=== PATIENT | female | born 1950 | race Hispanic/Latino ===

== ENCOUNTER 2017-11-14 13:46 | Inpatient (IN) | payer MEDICARE ==
[~2017-11-14] VITALS: Ht 160 cm; Wt 91.4 kg
[~2017-11-14 13:46] MED LIST: ASPIRIN81 MG PO; ATORVASTATIN CA20 MG PO; GLIMEPIRIDE4 MG PO; INVOKANA PO; JANUVIA100 MG PO; LANTUS100 UNITS/ SQ; LINZESS PO; LISINOPRIL-HCT1 EACH PO; MULTI-VITAMIN1 EACH PO; STOOL SOFTENER100 M1 PO; SULFAMETHOXAZO1 EAC1 PO
[2017-11-14] MEDS ORDERED: VANCOMYCIN 1GM/NS 250 ML 250 ML IV STA (14:27)
[2017-11-14] MEDS ORDERED: PIPER-TAZ 3.375 GM 50 ML IV STA (14:27)
--- NOTE | 2017-11-14 14:57 | Diagnostic Imaging Report ---
EXAMINATION: CHEST SINGLE (PORTABLE) INDICATION: \S\OSTEOMYELITIS RIGHT 3RD TOE \S\[id number] \S\1430 \S.br\ COMPARISON: Chest radiograph 03/30/2015 FINDINGS: AP view TUBES and LINES: None. LUNGS: Lungs are well inflated. Lungs are clear. There is no evidence of pneumonia or pulmonary edema. PLEURA: No pleural effusion or pneumothorax. HEART AND MEDIASTINUM: The cardiomediastinal silhouette is unremarkable. BONES AND SOFT TISSUES: No acute osseous lesion. Soft tissues are unremarkable. UPPER ABDOMEN: No free air under the diaphragm. IMPRESSION: No acute thoracic abnormality. Signed by: DR. Giovanny Evangelista MD on 11/14/2017 2:53 PM
--- NOTE | 2017-11-14 15:05 | Diagnostic Imaging Report ---
FOOT RIGHT COMPLETE HISTORY: Right third digit abscess, wound. COMPARISON: None available. FINDINGS: Bones: No acute displaced fracture. Chronic appearing fracture deformity of the third proximal phalanx. Calcaneal enthesopathic changes. Osseous alignment is within normal limits. Joints: Scattered mild degenerative changes. Soft tissues: Vascular calcifications. Soft tissue swelling/defect of the third digit. IMPRESSION: Soft tissue swelling of the third toe without radiographic evidence of osteomyelitis. Recommend follow up radiograph in the setting of continued poor wound healing. Signed by: DR. Giovanny Evangelista MD on 11/14/2017 3:01 PM
[2017-11-14 15:22] LABS: BASOPHILS # (AUTO) 0.1 (0.0-0.1); BASOPHILS % 0.3 % (0.0-1.0); EOSINOPHILS # (AUTO) 0.2 (0.0-0.4); EOSINOPHILS % 1.1 % (0.0-6.0); HEMATOCRIT 38.3 % (34.2-44.1); HEMOGLOBIN 12.4 g/dL (12.0-16.0); LYMPHOCYTES % 11.1 % (18.0-39.1); MEAN CORPUSCULAR HEMOGLOBIN 29.1 pg (28-32); MEAN CORPUSCULAR HGB CONC 32.4 g/dL (31-35); MEAN CORPUSCULAR VOLUME 89.9 fL (81-99); MONOCYTES # (AUTO) 0.8 (0.2-0.8); MONOCYTES % 4.7 % (4.4-11.3); NEUTROPHILS # (AUTO) 14.7 (2.1-6.9); NEUTROPHILS % 81.9 % (38.7-80.0); PLATELET COUNT 286 x10e3/uL (140-360); RED BLOOD COUNT 4.26 x10e6/uL (3.6-5.1); RED CELL DISTRIBUTION WIDTH 15.5 % (11.7-14.4)
[2017-11-14 15:30] LABS: INR 0.92; PROTHROMBIN TIME 12.8 seconds (11.9-14.5)
[2017-11-14 15:31] LABS: PARTIAL THROMBOPLASTIN TIME 29.9 seconds (23.8-35.5)
[2017-11-14 15:37] LABS: ALANINE AMINOTRANSFERASE 14 IU/L (0-55); ALBUMIN 3.7 g/dL (3.5-5.0); ALBUMIN/GLOBULIN RATIO 0.8 (0.8-2.0); ALKALINE PHOSPHATASE 143 IU/L (40-150); ANION GAP 16.4 mmol/L (8-16); BLOOD UREA NITROGEN 80 mg/dL (7-26); BUN/CREATININE RATIO 23 (6-25); CALCIUM 9.4 mg/dL (8.4-10.2); CARBON DIOXIDE 17 mmol/L (22-29); CHLORIDE 100 mmol/L (98-107); CREATININE, SERUM 3.42 mg/dL (0.57-1.11); EST GLOMERULAR FILTRATION RATE 13 ML/MIN (60-); GLUCOSE 216 mg/dL (74-118); SODIUM 128 mmol/L (136-145)
[2017-11-14 15:39] LABS: POTASSIUM 5.4 mmol/L (3.5-5.1)
[2017-11-14] MEDS ORDERED: ONDANSETRON HCL INJ 2 MG/ML VIAL IV PRN (17:00)
[2017-11-14] MEDS: SODIUM CHLORIDE 0.9% 1000ML 1,000 ML IV SCH (17:12)
[2017-11-14 20:45] VITALS: BP 156/88
[2017-11-14] MEDS: INSULIN REGULAR, HUMAN 100 UNIT/1 ML 3ML VIAL SQ SCH (21:00)
[2017-11-14 21:06] VITALS: BP 156/88
[2017-11-14 21:18] VITALS: BP 156/82
[2017-11-14] MEDS ORDERED: MELOXICAM7.5 MG PO (21:27)
[2017-11-14] MEDS: PIPERACILLIN/TAZO 2.25 GM 50 ML IV SCH (22:54)
[2017-11-15] VITALS (7 sets, daily range): BP systolic 107–154; BP diastolic 55–81
[2017-11-15] MEDS: PIPERACILLIN/TAZO 2.25 GM 50 ML IV SCH ×3 (05:27→21:53)
[2017-11-15] MEDS: SODIUM CHLORIDE 0.9% 1000ML 1,000 ML IV SCH ×3 (05:27→21:51)
[2017-11-15 06:29] LABS: BASOPHILS # (AUTO) 0.1 (0.0-0.1); BASOPHILS % 0.3 % (0.0-1.0); EOSINOPHILS # (AUTO) 0.3 (0.0-0.4); HEMATOCRIT 36.7 % (34.2-44.1); HEMOGLOBIN 11.5 g/dL (12.0-16.0); LYMPHOCYTES # (AUTO) 2.6 (1.0-3.2); LYMPHOCYTES % 16.9 % (18.0-39.1); MEAN CORPUSCULAR HEMOGLOBIN 28.9 pg (28-32); MEAN CORPUSCULAR HGB CONC 31.3 g/dL (31-35); MEAN CORPUSCULAR VOLUME 92.2 fL (81-99); MONOCYTES # (AUTO) 1.1 (0.2-0.8); MONOCYTES % 7.2 % (4.4-11.3); NEUTROPHILS # (AUTO) 11.3 (2.1-6.9); NEUTROPHILS % 72.8 % (38.7-80.0); PLATELET COUNT 251 x10e3/uL (140-360); RED BLOOD COUNT 3.98 x10e6/uL (3.6-5.1); RED CELL DISTRIBUTION WIDTH 15.4 % (11.7-14.4)
[2017-11-15 06:47] LABS: CALCIUM 8.6 mg/dL (8.4-10.2); CREATININE, SERUM 2.87 mg/dL (0.57-1.11)
[2017-11-15 07:15] LABS: ANION GAP 13.8 mmol/L (8-16); POTASSIUM 5.8 mmol/L (3.5-5.1)
[2017-11-15] MEDS ORDERED: CANAGLIFLOZIN 100 MG TABLET PO SCH (07:30)
[2017-11-15] MEDS: INSULIN REGULAR, HUMAN 100 UNIT/1 ML 3ML VIAL SQ SCH ×4 (07:30→21:00)
[2017-11-15] MEDS ORDERED: GLIMEPIRIDE 2 MG TAB PO SCH (08:00)
[2017-11-15] MEDS: MULTIVITAMINS/MINERALS TAB PO SCH (08:45)
[2017-11-15] MEDS: HYDROCHLOROTHIAZIDE 25 MG TAB PO SCH ×3 (08:45→21:36)
[2017-11-15] MEDS: LISINOPRIL 20 MG TAB PO SCH ×3 (08:45→21:36)
[2017-11-15] MEDS: MELOXICAM 7.5 MG TAB PO SCH (08:45)
[2017-11-15] MEDS ORDERED: NON-FORMULARY MEDICATION (Glimepiride 1 TAB) PO SCH (09:00)
[2017-11-15] MEDS ORDERED: VANCOMYCIN HCL IV SCH (09:00)
[2017-11-15] MEDS ORDERED: SODIUM CHLORIDE 0.9% IV SCH (09:00)
[2017-11-15] MEDS ORDERED: ASPIRIN 81 MG CHEW TAB PO SCH (09:00)
[2017-11-15] MEDS ORDERED: SITAGLIPTIN 100 MG TAB PO SCH (09:00)
--- NOTE | 2017-11-15 12:55 | Consultation ---
DATE OF CONSULTATION: PODIATRY CONSULT CHIEF COMPLAINT AND HISTORY OF CHIEF COMPLAINT: Ms. Beavers is a most pleasant female with gangrene of the 3rd digit of the right foot. The patient states that she took her normal bath Sunday of last week and noticed no problems. By Sunday she stated that she noticed a foul odor and black toe, which was the next time that she bathed. The patient reported to the ER last night for admission and is now being treated for gangrene of the right lower extremity with IV antibiotics. PREVIOUS MEDICAL HISTORY: Does indeed include diabetes x20+ years. She states that she has no other significant previous medical history and sees Dr. Teague for her overall healthcare. The patient states she sees Dr. Teague every 3 months. She is also being treated for hypertension. REVIEW OF SYSTEMS: Otherwise negative. She has no other complaints, is breathing normally without significant pain. Previous medical history diabetes and hypertension. MEDICATIONS: Well documented elsewhere within the chart. ALLERGIES: SHOW ALLERGIES TO HYDROMORPHONE AND MORPHINE. SOCIAL HISTORY: The patient is a former smoker. She states that she quit smoking 3 years ago. PHYSICAL EVALUATION LOWER EXTREMITY VASCULAR STATUS: The patient has a warm lower extremity bilaterally. There are, however, nonpalpable pedal pulses in either dorsalis pedis or posterior tibial. Skin temperature is warm. Capillary refill is sluggish. NEUROLOGICALLY: The patient has a loss of protective sensation as evidenced by G[place]-Vishnu monofilament testing. DERMATOLOGICALLY: There is a gangrenous 3rd digit with a foul odor and bullous appearance to the digit. MUSCULOSKELETAL: Radiographs taken on admission show soft-tissue swelling of the 3rd toe without radiographic evidence of osteomyelitis. No obvious abscessing is noted. LABS, X-RAYS AND EKG: The chest x-ray is normal. CBC does show elevated white count at 18 with a shift to the left. DIAGNOSIS: Gangrene 3rd digit right foot with infection. She is currently on Zosyn and vancomycin. Noninvasive arterial vascular evaluations show severe peripheral arterial disease with probable occlusion to the right lower extremity. RECOMMENDATION: Local wound care with Bactroban ointment twice daily. Continue IV antibiotics. MRI of the right lower extremity to evaluate for possible osteomyelitis as well, and vascular consult is made to Dr. Kelley for consideration of revascularization if possible to facilitate healing and determine appropriate level for debridement. Thank you very much for asking me to participate in the care of this most pleasant lady. Job#: [id number] EV
--- NOTE | 2017-11-15 13:52 | Consultation ---
DATE OF CONSULTATION: November 15, 2017 CARDIOLOGY CONSULTATION REQUESTING PHYSICIAN: Dr. Iker Teague. REASON FOR CONSULTATION: Peripheral arterial disease. HISTORY OF PRESENT ILLNESS: This is a 67-year-old woman with history of hypertension, hyperlipidemia, diabetes mellitus and chronic kidney disease, who presents with right toe gangrene. She reports she noted discoloration of her right toe 1 week ago. This was associated with foul odor and drainage. She went to see urgent care, where she was given a topical cream and some oral antibiotics with recommendation to see wound care. She was unable to get in to see wound care; so, she, therefore, presented to the ER for further evaluation. She denies any chest pain, shortness of breath, palpitations, edema, orthopnea or PND. REVIEW OF SYSTEMS: Negative except as per HPI. PAST MEDICAL HISTORY 1. Hypertension. 2. Hyperlipidemia. 3. Diabetes mellitus. 4. Chronic kidney disease stage 3. 5. Reported history of peripheral arterial disease with prior angioplasty. SURGICAL HISTORY 1. I&D. 2. Hemorrhoidectomy. 3. Cholecystectomy. 4. Tonsillectomy. ALLERGIES: PLEASE SEE EMR. MEDICATIONS: Please see medication list. SOCIAL HISTORY: She smoked a pack a day for 30 years, quit in 2014. Occasional alcohol, no illicit drugs. FAMILY HISTORY: Noncontributory. PHYSICAL EXAMINATION VITAL SIGNS: Temperature 97.3 degrees, pulse 78, respiratory rate 19, blood pressure 107/67, oxygen saturation 96% on room air. GENERAL: Obese woman in no acute distress. HEENT: Normocephalic, atraumatic. Pupils equal, no scleral icterus. NECK: Supple. No thyromegaly or cervical lymphadenopathy, no carotid bruits. LUNGS: Clear to auscultation bilaterally. No wheezes or crackles. CARDIOVASCULAR: Normal rate, regular rhythm. No murmur. Normal S1 and S2. ABDOMEN: Soft, nontender. EXTREMITIES: No edema. Right 3rd toe with dry gangrene. LABS: Sodium 136, potassium 5.8, chloride 112, CO2 16, BUN 72, creatinine 2.87. WBC 15.5, hemoglobin 11.5, hematocrit 36.7, platelets 251. Chest x-ray: No acute thoracic abnormality. EKG: Normal sinus rhythm, normal ECG. IMPRESSION 1. Right 3rd toe gangrene. 2. Chronic kidney disease stage 4. 3. Diabetes mellitus. 4. Hypertension. 5. Hyperlipidemia. 6. Reported history of peripheral arterial disease. RECOMMENDATIONS: Will start with bilateral lower extremity arterial Dopplers. If Dopplers are suggestive of hemodynamically significant stenosis, we will need to discuss peripheral angiogram. However, the patient's renal function is quite poor. She may be at high risk for contrast-induced nephropathy if she were to undergo peripheral angiogram. In the meantime, continue current cardiac medications. Thank you for this consult. We will continue to follow. Job#: [id number] EV MTDD
--- NOTE | 2017-11-15 14:08 | Progress Note ---
DATE: NO DICTATION, LENGTH 3 SECONDS. Job#: [id number] MH
--- NOTE | 2017-11-15 14:18 | Consultation ---
DATE OF CONSULTATION: REASON FOR CONSULTATION: Infection of the right middle toe, gangrene. HISTORY OF PRESENT ILLNESS: This patient is a 67-year-old female, very pleasant, with history of hypertension, history of diabetes mellitus, and history of smoking, quit 3 years ago. She has been having a problem with her right foot for a few weeks. The 3rd toe seems to be getting progressively black and discolored, which she had for a while. The patient comes into the hospital finally complaining of some pain in the toe. The patient noted there was some odor, and the toe became black on Sunday. The patient is being admitted. Infectious disease was consulted. The patient is currently lying in bed comfortably. She has no complaints except some pain in the big toe. PAST MEDICAL HISTORY: Diabetes mellitus, hypertension, history of smoking. PAST SURGICAL HISTORY: Denies. ALLERGIES: MORPHINE. MEDICATION: List at home reviewed. Medications here list reviewed. SOCIAL HISTORY: There is currently no smoking, drug abuse or alcohol abuse. FAMILY HISTORY: Hypertension and diabetes. REVIEW OF SYSTEMS HEENT: There is no headache, visual changes, hearing changes. CARDIAC: No arrhythmia. No seizure activity. SKIN: No rash. GI: There is no vomiting, no diarrhea, no diarrhea. LABORATORY DATA: Reviewed. White count is 17.9, hemoglobin 12, hematocrit 38. Her sodium is 136, potassium 5.8, creatinine of 2.87. X-ray of the foot is showing soft-tissue swelling of the 3rd toe without radiographic evidence of osteomyelitis. PHYSICAL EXAMINATION GENERAL: She is currently alert and oriented, does not seem to be in acute distress. VITALS: Stable, currently afebrile. HEENT: She is not icteric. NECK: Supple. CHEST: Clear. COR: No murmur. ABDOMEN: Soft. Bowel sounds are present. No tenderness. EXTREMITIES: No edema. There is erythema of the foot. There are gangrenous changes noted of the 3rd toe. The pulse is weak. IMPRESSION: Gangrene of 3rd toe with soft-tissue infection. Concerned about osteomyelitis. X-ray does not reveal that concern. However, would need to do an MRI. Agree with choice of vancomycin and Zosyn. Agree with vascular workup. Further recommendations to follow. Job#: [id number]
[2017-11-15] MEDS: MUPIROCIN 2% OINT 22 GM TUBE TOP SCH (16:03)
[2017-11-15] MEDS: CANAGLIFLOZIN 100 MG TABLET PO SCH (17:10)
[2017-11-15] MEDS: VANCOMYCIN 1GM/NS 250 ML 250 ML IV SCH (17:10)
[2017-11-15] MEDS: SITAGLIPTIN 100 MG TAB PO SCH (17:11)
--- NOTE | 2017-11-15 17:11 | Diagnostic Imaging Report ---
TECHNIQUE: Magnetic resonance imaging of the RIGHT foot (midfoot/forefoot) was performed WITHOUT injected contrast. HISTORY: wet gangrene, infection, third toe, osteomyelitis COMPARISON: None available. DISCUSSION: Bone: No focal or infiltrative bone marrow replacing abnormality. No acute fracture or osteonecrosis. Healed fracture deformities of the bases of the second, third and fifth proximal phalanges. Diffusely preserved fatty marrow signal. Joints: Hammertoe configuration of the second and third digits. No effusion. Soft Tissues: No drainable fluid collection. Mild diffuse edema. IMPRESSION: 1. No evidence of osteomyelitis. 2. No soft tissue abscess. Signed by: Dr. Aleksandr Watson D.O., M.M.M. on 11/15/2017 5:08 PM
[2017-11-15] MEDS ORDERED: ATORVASTATIN 20 MG TAB PO SCH (21:00)
[2017-11-15] MEDS ORDERED: NON-FORMULARY MEDICATION ([Invokana] 300 MG) PO SCH (21:00)
[2017-11-15] MEDS: INSULIN DETEMIR 100 UNIT/ML PEN SQ SCH (21:36)
[2017-11-15] MEDS: ATORVASTATIN 40 MG TAB PO SCH (21:36)
[2017-11-15] MEDS: ASPIRIN 81 MG CHEW TAB PO SCH (21:36)
[2017-11-15] MEDS: GLIMEPIRIDE 2 MG TAB PO SCH (21:36)
[2017-11-16 00:10] VITALS: BP 96/62
[2017-11-16] MEDS: SODIUM CHLORIDE 0.9% 1000ML 1,000 ML IV SCH ×3 (00:47→16:43)
[2017-11-16 04:40] VITALS: BP 121/71
[2017-11-16] MEDS: PIPERACILLIN/TAZO 2.25 GM 50 ML IV SCH ×3 (05:50→22:00)
[2017-11-16] MEDS: LOPERAMIDE HCL 2 MG CAP PO PRN (05:52)
[2017-11-16 06:25] LABS: BASOPHILS # (AUTO) 0.1 (0.0-0.1); BASOPHILS % 0.4 % (0.0-1.0); EOSINOPHILS # (AUTO) 0.3 (0.0-0.4); HEMATOCRIT 32.4 % (34.2-44.1); HEMOGLOBIN 10.1 g/dL (12.0-16.0); LYMPHOCYTES # (AUTO) 2.1 (1.0-3.2); MEAN CORPUSCULAR HEMOGLOBIN 28.7 pg (28-32); MEAN CORPUSCULAR HGB CONC 31.2 g/dL (31-35); MONOCYTES % 7.2 % (4.4-11.3); NEUTROPHILS # (AUTO) 10.3 (2.1-6.9); NEUTROPHILS % 74.6 % (38.7-80.0); PLATELET COUNT 235 x10e3/uL (140-360); RED BLOOD COUNT 3.52 x10e6/uL (3.6-5.1); RED CELL DISTRIBUTION WIDTH 15.3 % (11.7-14.4)
[2017-11-16 06:51] LABS: ANION GAP 12.8 mmol/L (8-16); CALCIUM 8.4 mg/dL (8.4-10.2); CREATININE, SERUM 2.27 mg/dL (0.57-1.11); POTASSIUM 5.8 mmol/L (3.5-5.1)
[2017-11-16] MEDS: INSULIN REGULAR, HUMAN 100 UNIT/1 ML 3ML VIAL SQ SCH ×4 (07:30→21:00)
[2017-11-16 08:00] VITALS: BP 111/56
[2017-11-16] MEDS: CANAGLIFLOZIN 100 MG TABLET PO SCH (08:40)
[2017-11-16] MEDS: GLIMEPIRIDE 2 MG TAB PO SCH ×2 (08:54→20:00)
[2017-11-16] MEDS: HYDROCHLOROTHIAZIDE 25 MG TAB PO SCH (09:36)
[2017-11-16] MEDS: ASPIRIN 81 MG CHEW TAB PO SCH (09:36)
[2017-11-16] MEDS: MELOXICAM 7.5 MG TAB PO SCH (09:36)
[2017-11-16] MEDS: SITAGLIPTIN 100 MG TAB PO SCH (09:36)
[2017-11-16] MEDS: MULTIVITAMINS/MINERALS TAB PO SCH (09:36)
[2017-11-16] MEDS: LISINOPRIL 20 MG TAB PO SCH (09:37)
[2017-11-16] MEDS: MUPIROCIN 2% OINT 22 GM TUBE TOP SCH (09:37)
[2017-11-16] MEDS ORDERED: SOD POLYSTYRENE SULFONATE SUSP 15 GM/60 ML BTL PO NR (11:30)
[2017-11-16 12:00] VITALS: BP 180/77
--- NOTE | 2017-11-16 13:21 | Consultation ---
DATE OF CONSULTATION: November 16, 2017 NEPHROLOGY CONSULTATION REQUESTING PHYSICIAN: Dr. Teague. Thank you for allowing us to participate in Ms. Beavers's care. HISTORY OF PRESENT ILLNESS: This is a 67-year-old female with known CKD, admitted with right foot 3rd digit gangrene. Doppler is suggestive of peripheral vascular disease. She needs an angiogram. She has known CKD. Two years ago creatinine was about 1.5. I do not have more recent labs available. However, while here it was noted that creatinine has been 3.4 originally, down to 2.27. She has been on IV fluids. Serum CO2 was depressed at 16. Potassium was persistently high around 5.8. She had been on lisinopril. Dose was somewhat cut down. She has had trouble with hyperkalemia as an outpatient before. No urine is available at this time. White count is elevated, down to 13,000 from 17,000. Hemoglobin is stable at 10.1. She had been on Mobic. Serum CO2 is depressed. PAST HISTORY: Significant for 1. CKD probably stage 3, maybe stage 4. I need to confirm that. 2. Hypertension. 3. Diabetes. 4. History of peripheral vascular disease, presumed. 5. Nicotine use. HOME MEDICATIONS 1. Had been on Mobic. I have requested that to be stopped. 2. Lisinopril 20 b.i.d., which has been cut down and now stopped. 3. Hydrochlorothiazide 12.5 twice daily. 4. Sitagliptin 100 once a day. 5. Glimepiride 4 mg a day. 6. Loperamide p.r.n. 7. Lipitor 80 mg a day. 8. Levemir 60 daily. 9. Vancomycin I think 1 g, vancomycin q.24 h. 10. Sodium bicarbonate 300 b.i.d. SOCIAL HISTORY: History of smoking. FAMILY HISTORY: Diabetes. REVIEW OF SYSTEMS CONSTITUTIONAL: No fever or chills. SKIN: Discoloration of the right foot. CARDIAC: No angina or syncope. RESPIRATORY: Denying cough, hemoptysis. NEURO: Denies headaches, seizures. REST OF REVIEW: Negative. PHYSICAL EXAMINATION GENERAL: Lying in bed. No distress. VITAL SIGNS: Blood pressure is 111/56, temperature is 98.5, pulse 90. HEENT: Atraumatic. NECK: No JVD. CHEST: Clear. Bilateral breath sounds are equal. CARDIAC: Question S4. Normal heart tones. ABDOMEN: Benign. EXTREMITIES: No edema. Erythema of the foot is noted as well as discoloration of the right foot 3rd toe. LABS: White count 13,000, hemoglobin 10.1, platelets 235. Potassium is 5.8, serum CO2 is 16, sodium 136, creatinine 2.27, BUN 58. As noted, admission creatinine was 3.4. ASSESSMENT 1. Mild acute kidney injury, probable chronic kidney disease stage 3 to 4 from diabetic hypertensive end-organ damage. Acute kidney injury from potentially (1) acute tubular necrosis, (2) combination of nonsteroidal anti-inflammatory drugs and lisinopril, (3) volume depletion. 2. The volume status appears to be improving. 3. Hyperkalemia, partly from decreased glomerular filtration rate, partly from angiotensin-converting enzyme inhibitors and nonsteroidal anti-inflammatory drugs. 4. Metabolic acidosis, also from the above. Noted that anion gap is 13, which is within the normal range. PLAN 1. Hold the lisinopril. Stop the hydrochlorothiazide. Leave on IV fluids. Add 1 dose of Kayexalate. 2. Recheck chemistries in the morning. 3. Get renal ultrasound. 4. Check urinalysis. 5. Avoid NSAIDs and other nephrotoxins. 6. Additionally counseled her on low-potassium diet, avoidance of NSAIDs, importance of blood pressure and diabetes control as well as weight loss. Thank you for allowing us to participate in Ms. Beavers's care. We will follow along with you. Sincerely, Job#: [id number] EV
--- NOTE | 2017-11-16 15:30 | Progress Note ---
DATE: November 16, 2017 CARDIOLOGY PROGRESS NOTE SUBJECTIVE: Patient denies chest pain. She is reporting dyspnea on exertion. Bilateral lower extremity arterial Doppler was suggestive of hemodynamically significant stenosis in the right lower extremity as well as infrapopliteal peripheral arterial disease on the left. However, her renal function is currently limiting our ability to perform peripheral angiogram. We discussed with the patient that we are awaiting nephrology evaluation to reduce the risk of contrast-induced nephropathy. She expressed an understanding. OBJECTIVE VITAL SIGNS: Temperature 98.5 degrees, pulse 90, respiratory rate 19, blood pressure 111/56. Oxygen saturation is 96% on room air. GENERAL: Awake, alert, obese, in no acute distress. LUNGS: Clear to auscultation bilaterally. No wheezes or crackles. CARDIOVASCULAR: Normal rate, regular rhythm. No murmur. Normal S1 and S2. ABDOMEN: Soft, nontender. EXTREMITIES: No edema. Right 3rd toe with dry gangrene. CARDIAC MEDICATIONS 1. Aspirin 81 mg p.o. daily. 2. Atorvastatin 80 mg p.o. nightly. LABS: WBC 13.8, hemoglobin 10.1, hematocrit 32.4, platelets 235. Sodium 136, potassium 5.8, chloride 113, CO2 16, BUN 58, creatinine 2.27. IMPRESSION 1. Right 3rd toe gangrene. 2. Peripheral arterial disease suggested by noninvasive Doppler evaluation. 3. Muvqs-cg-glmsptd kidney disease. 4. Diabetes mellitus. 5. Hypertension. 6. Hyperlipidemia. RECOMMENDATIONS: Discussed need for peripheral angiogram. However, we are pending nephrology evaluation. Patient was discussed with nephrology. They would like a few more days to optimize the patient's renal function prior to us proceeding. We will hold off. Continue current cardiac medications otherwise. Wound care per podiatry. Thank you for this consult. We will continue to follow. Job#: [id number]
[2017-11-16 16:00] VITALS: BP 131/79
[2017-11-16] MEDS: VANCOMYCIN 1GM/NS 250 ML 250 ML IV SCH (16:43)
[2017-11-16] MEDS: SODIUM BICARBONATE 650 MG TAB PO SCH (16:43)
--- NOTE | 2017-11-16 18:07 | Diagnostic Imaging Report ---
PROCEDURE:US RETROPERITONEAL ( KIDNEY ). COMPARISON:None. INDICATIONS:ARF TECHNIQUE: Parra-scale and color sonographic images of the bilateral kidneys and bladder where obtained in transverse and longitudinal planes. FINDINGS: RIGHT KIDNEY: 9.0 cm, cortex 1.3 cm Cysts: 2.2 x 1.9 x 2.2 cm cystic, anechoic lesion in the inferolateral aspect Solid masses: 0.9 x 1.0 x 1.1 cm relatively well circumscribed, hyperechoic non-shadowing cortical solid lesion in the mid aspect Stones: None Hydronephrosis: None Echogenicity: Normal LEFT KIDNEY: 9.1 cm, cortex 0.9 cm Cysts: None Solid masses: None Stones: None Hydronephrosis: None Echogenicity: Normal Bladder: No focal lesions. No wall thickening. CONCLUSION: 1. Both kidneys are in the lower limit of normal in size. Normal echogenicity. No stones or hydronephrosis. 2. 2.2 cm simple right renal cyst. 3. 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 Chris Natarajan M.D. Dictated by: Chris Natarajan M.D. on 11/16/2017 at 18:16 Electronically approved by: Chris Natarajan M.D. on 11/16/2017 at 18:16
[2017-11-16] MEDS: ATORVASTATIN 40 MG TAB PO SCH (21:00)
[2017-11-16] MEDS: INSULIN DETEMIR 100 UNIT/ML PEN SQ SCH (21:00)
[2017-11-17] VITALS (7 sets, daily range): BP systolic 126–162; BP diastolic 58–81
[2017-11-17] MEDS: SODIUM CHLORIDE 0.9% 1000ML 1,000 ML IV SCH ×2 (02:20→17:42)
[2017-11-17] MEDS: PIPERACILLIN/TAZO 2.25 GM 50 ML IV SCH ×3 (06:02→22:00)
[2017-11-17 06:16] LABS: ANION GAP 13.7 mmol/L (8-16); CALCIUM 8.8 mg/dL (8.4-10.2); CREATININE, SERUM 1.96 mg/dL (0.57-1.11); PHOSPHORUS 3.9 MG/DL (2.3-4.7); POTASSIUM 5.7 mmol/L (3.5-5.1)
[2017-11-17] MEDS: INSULIN REGULAR, HUMAN 100 UNIT/1 ML 3ML VIAL SQ SCH ×4 (07:30→20:55)
[2017-11-17] MEDS: CANAGLIFLOZIN 100 MG TABLET PO SCH (07:30)
[2017-11-17] MEDS: GLIMEPIRIDE 2 MG TAB PO SCH ×2 (08:00→20:54)
[2017-11-17] MEDS: ASPIRIN 81 MG CHEW TAB PO SCH (09:14)
[2017-11-17] MEDS: MULTIVITAMINS/MINERALS TAB PO SCH (09:14)
[2017-11-17] MEDS: SITAGLIPTIN 100 MG TAB PO SCH (09:14)
[2017-11-17] MEDS: MUPIROCIN 2% OINT 22 GM TUBE TOP SCH (09:14)
[2017-11-17] MEDS: SODIUM BICARBONATE 650 MG TAB PO SCH ×2 (09:14→16:30)
--- NOTE | 2017-11-17 12:48 | Progress Note ---
DATE: November 17, 2017 CARDIOLOGY PROGRESS NOTE: SUBJECTIVE: Ms. Beavers has some foot pain. OBJECTIVE VITAL SIGNS: Afebrile. Heart rate 88. Blood pressure 135/64. O2 sat is 97%. CARDIOVASCULAR: Regular rhythm. S4 gallop. No murmurs. LUNGS: Clear to auscultation bilaterally. ABDOMEN: Soft. Hemoglobin is 10.1. Serum creatinine is improved to 1.96 with GFR of 26. Foot MRI does not show any evidence of osteomyelitis. ASSESSMENT: 1. Severe peripheral arterial disease with gangrene of the right lower extremity. 2. Acute on chronic renal failure. PLAN: Continue the intravenous hydration. Withhold any nephrotoxic agents. Planned for angiography on Sunday. This was discussed with the patient. She understands the risks, benefits and alternatives including the risk of worsening renal failure. However, she remains at high risk for limb loss due to her ongoing gangrene and occluded right femoral artery. I thank Dr. Teague for this consultation. Job#: [id number] NICOLE
[2017-11-17] MEDS: VANCOMYCIN 1GM/NS 250 ML 250 ML IV SCH (16:30)
[2017-11-17] MEDS ORDERED: SOD POLYSTYRENE SULFONATE SUSP 15 GM/60 ML BTL PO ONE (19:00)
[2017-11-17] MEDS: ATORVASTATIN 40 MG TAB PO SCH (20:54)
[2017-11-17] MEDS: INSULIN DETEMIR 100 UNIT/ML PEN SQ SCH (20:55)
[2017-11-18] VITALS (7 sets, daily range): BP systolic 117–159; BP diastolic 57–73
[2017-11-18] MEDS: SODIUM CHLORIDE 0.9% 1000ML 1,000 ML IV SCH ×3 (00:47→20:56)
[2017-11-18] MEDS: PIPERACILLIN/TAZO 2.25 GM 50 ML IV SCH ×3 (06:00→22:00)
[2017-11-18 06:26] LABS: ANION GAP 10.7 mmol/L (8-16); CALCIUM 8.5 mg/dL (8.4-10.2); CREATININE, SERUM 1.6 mg/dL (0.57-1.11); POTASSIUM 4.7 mmol/L (3.5-5.1)
[2017-11-18] MEDS: INSULIN REGULAR, HUMAN 100 UNIT/1 ML 3ML VIAL SQ SCH ×4 (07:30→21:00)
[2017-11-18] MEDS: CANAGLIFLOZIN 100 MG TABLET PO SCH (07:30)
[2017-11-18] MEDS: MUPIROCIN 2% OINT 22 GM TUBE TOP SCH (08:26)
[2017-11-18] MEDS: SITAGLIPTIN 100 MG TAB PO SCH (08:26)
[2017-11-18] MEDS: MULTIVITAMINS/MINERALS TAB PO SCH (08:26)
[2017-11-18] MEDS: GLIMEPIRIDE 2 MG TAB PO SCH ×2 (08:26→20:56)
[2017-11-18] MEDS: SODIUM BICARBONATE 650 MG TAB PO SCH ×2 (08:26→17:32)
[2017-11-18] MEDS: ASPIRIN 81 MG CHEW TAB PO SCH (08:26)
[2017-11-18 11:18] LABS: BILIRUBIN,URINE NEGATIVE (NEGATIVE); CLARITY,URINE CLEAR (CLEAR); COLOR,URINE YELLOW (YELLOW); KETONES,URINE NEGATIVE (NEGATIVE); LEUKOCYTE ESTERASE ,URINE NEGATIVE (NEGATIVE); NITRITE,URINE NEGATIVE (NEGATIVE); URINE UROBILINOGEN 0.2 mg/dL (0.2 - 1)
[2017-11-18 11:20] LABS: PROTEIN,URINE DIPSTICK TRACE (NEGATIVE)
[2017-11-18 11:32] LABS: EPITHELIAL CELLS,URINE FEW /LPF; WBC,URINE (MAN) 0-5 /HPF (0-5)
[2017-11-18] MEDS ORDERED: CLOPIDOGREL BISULFATE 75 MG TAB PO ONE (12:30)
[2017-11-18] MEDS: VANCOMYCIN 1GM/NS 250 ML 250 ML IV SCH (17:32)
[2017-11-18] MEDS: ATORVASTATIN 40 MG TAB PO SCH (20:56)
[2017-11-18] MEDS: INSULIN DETEMIR 100 UNIT/ML PEN SQ SCH (21:00)
[2017-11-19] VITALS (8 sets, daily range): BP systolic 126–178; BP diastolic 63–81
[2017-11-19] MEDS: PIPERACILLIN/TAZO 2.25 GM 50 ML IV SCH ×2 (06:00→14:39)
[2017-11-19] MEDS: SODIUM CHLORIDE 0.9% 1000ML 1,000 ML IV SCH ×2 (06:07→08:32)
[2017-11-19 06:22] LABS: BASOPHILS % 0.2 % (0.0-1.0); EOSINOPHILS # (AUTO) 0.3 (0.0-0.4); EOSINOPHILS % 2.1 % (0.0-6.0); HEMATOCRIT 32.3 % (34.2-44.1); HEMOGLOBIN 10.4 g/dL (12.0-16.0); LYMPHOCYTES # (AUTO) 2.1 (1.0-3.2); LYMPHOCYTES % 15.1 % (18.0-39.1); MEAN CORPUSCULAR HEMOGLOBIN 28.9 pg (28-32); MEAN CORPUSCULAR HGB CONC 32.2 g/dL (31-35); MEAN CORPUSCULAR VOLUME 89.7 fL (81-99); MONOCYTES # (AUTO) 0.9 (0.2-0.8); MONOCYTES % 6.4 % (4.4-11.3); NEUTROPHILS # (AUTO) 10.5 (2.1-6.9); NEUTROPHILS % 74.9 % (38.7-80.0); PLATELET COUNT 249 x10e3/uL (140-360); RED CELL DISTRIBUTION WIDTH 15.4 % (11.7-14.4)
[2017-11-19 06:43] LABS: ANION GAP 13.5 mmol/L (8-16); CALCIUM 8.6 mg/dL (8.4-10.2); CREATININE, SERUM 1.38 mg/dL (0.57-1.11); POTASSIUM 4.5 mmol/L (3.5-5.1)
[2017-11-19] MEDS: INSULIN REGULAR, HUMAN 100 UNIT/1 ML 3ML VIAL SQ SCH ×4 (07:30→20:56)
[2017-11-19] MEDS: CLOPIDOGREL BISULFATE 75 MG TAB PO SCH (08:32)
[2017-11-19] MEDS: SODIUM BICARBONATE 650 MG TAB PO SCH ×2 (08:32→17:00)
[2017-11-19] MEDS: CANAGLIFLOZIN 100 MG TABLET PO SCH (08:32)
[2017-11-19] MEDS: GLIMEPIRIDE 2 MG TAB PO SCH ×2 (08:32→20:37)
[2017-11-19] MEDS: MULTIVITAMINS/MINERALS TAB PO SCH (08:32)
[2017-11-19] MEDS: SITAGLIPTIN 100 MG TAB PO SCH (08:32)
[2017-11-19] MEDS: ASPIRIN 81 MG CHEW TAB PO SCH (08:32)
--- NOTE | 2017-11-19 09:34 | Progress Note ---
DATE: November 19, 2017 CARDIOLOGY PROGRESS NOTE SUBJECTIVE: Ms. Beavers's renal function continues to improve. PHYSICAL EXAMINATION VITALS: Afebrile, heart rate 87, blood pressure 126/68, and O2 sat is 97%. CARDIOVASCULAR: Regular rhythm. No murmurs or gallops. LUNGS: Clear to auscultation bilaterally. EXTREMITIES: Right lower extremity pulses are absent. Creatinine today is 1.38 with a GFR of 38. ASSESSMENT: Peripheral arterial disease with gangrene and ulceration of the right lower extremity. RECOMMENDATIONS: Continue intravenous hydration. Peripheral angiography of the right lower extremity tomorrow. This was discussed with the patient. She is agreeable for the same. Job#: [id number] IVAN
[2017-11-19] MEDS: MUPIROCIN 2% OINT 22 GM TUBE TOP SCH (10:45)
--- NOTE | 2017-11-19 12:52 | Progress Note ---
DATE: November 19, 2017 NEPHROLOGY PROGRESS NOTE SUBJECTIVE: Feeling better. OBJECTIVE VITALS: Creatinine is down to about 1.4. Temperature 97.4, pulse 91, blood pressure 148/78. CHEST: Clear. EXTREMITIES: No edema. ABDOMEN: Benign. NEURO: Alert and appropriate. LABS: Serum CO2 21, creatinine 1.4, BUN 27. ASSESSMENT: Acute kidney injury; chronic kidney disease, stage 3; presumed diabetic nephropathy. PLAN: For the time being, hold lisinopril. Keep on sodium bicarbonate for the metabolic acidosis. A.M. chemistries. Angiography should be low-risk procedure at this point. Will follow along with you. Job#: [id number]
--- NOTE | 2017-11-19 14:59 | Progress Note ---
DATE: PODIATRY PROGRESS NOTE Patient was visited at bedside with family present. Her right foot is continuing to improve. Her renal function, according to the chart, continues to improve as well. PHYSICAL EXAMINATION: The patient is afebrile today, and there is no change in the lower extremity vascular status. There are progressive gangrenous changes to the 3rd digit of the right foot with fairly significant necrosis of the toe. The previously cellulitic dorsum of the foot seems to be improved with IV antibiotics. ASSESSMENT: Severe peripheral arterial disease in a diabetic patient with gangrene of the right 3rd toe and chronic ulceration. Dr. Kelley will proceed with peripheral angiography of the right lower extremity tomorrow. The patient has agreed to the same. Continue intravenous hydration today and through the night. I will follow her after angiography for further discussion of debridement of the right foot. However, at this point, IV antibiotics and local wound care are to be continued without change. Job#: [id number]
[2017-11-19] MEDS ORDERED: CLONIDINE HCL 0.1 MG TAB PO PRN (17:15)
[2017-11-19] MEDS: INSULIN DETEMIR 100 UNIT/ML PEN SQ SCH (20:37)
[2017-11-19] MEDS: ATORVASTATIN 40 MG TAB PO SCH (20:37)
[2017-11-20] VITALS (8 sets, daily range): BP systolic 130–161; BP diastolic 63–84
[2017-11-20] MEDS: PIPERACILLIN/TAZO 2.25 GM 50 ML IV SCH ×4 (00:15→22:30)
[2017-11-20] MEDS ORDERED: SODIUM CHLORIDE 0.9% 1000ML 1,000 ML IV SCH (00:15)
[2017-11-20] MEDS: DEXTROSE 50% SYRINGE 50 ML IV PRN ×2 (04:43→09:08)
[2017-11-20 06:40] LABS: ANION GAP 13.8 mmol/L (8-16); CALCIUM 8.2 mg/dL (8.4-10.2); CREATININE, SERUM 1.42 mg/dL (0.57-1.11); POTASSIUM 3.8 mmol/L (3.5-5.1)
[2017-11-20] MEDS: VANCOMYCIN 1GM/NS 250 ML 250 ML IV SCH (06:48)
[2017-11-20] MEDS: INSULIN REGULAR, HUMAN 100 UNIT/1 ML 3ML VIAL SQ SCH ×4 (07:30→21:00)
[2017-11-20] MEDS: CANAGLIFLOZIN 100 MG TABLET PO SCH (07:30)
[2017-11-20] MEDS: MULTIVITAMINS/MINERALS TAB PO SCH (07:53)
[2017-11-20] MEDS: CLOPIDOGREL BISULFATE 75 MG TAB PO SCH (07:53)
[2017-11-20] MEDS: ASPIRIN 81 MG CHEW TAB PO SCH (07:53)
[2017-11-20] MEDS: MUPIROCIN 2% OINT 22 GM TUBE TOP SCH (07:53)
[2017-11-20] MEDS: SITAGLIPTIN 100 MG TAB PO SCH (07:53)
[2017-11-20] MEDS: SODIUM BICARBONATE 650 MG TAB PO SCH ×2 (07:53→16:16)
[2017-11-20] MEDS: GLIMEPIRIDE 2 MG TAB PO SCH ×2 (07:53→20:10)
[2017-11-20] MEDS ORDERED: DEXTROSE 5%/0.45% SOD CHL 1,000 ML IV ONE (08:00)
[2017-11-20] MEDS ORDERED: VANCOMYCIN 1GM/NS 250 ML 250 ML IV SCH (09:00)
[2017-11-20] MEDS ORDERED: FENTANYL CITRATE/PF 100MCG/2 ML INJ ONE (12:28)
[2017-11-20] MEDS ORDERED: SODIUM CHLORIDE 0.9% 500ML 500 ML ONE (12:29)
[2017-11-20] MEDS ORDERED: MIDAZOLAM HCL 2 MG/2 ML VIAL ONE (12:29)
[2017-11-20] MEDS ORDERED: LIDOCAINE HCL 2% LOCAL 20 ML VIAL ONE (12:29)
--- NOTE | 2017-11-20 14:35 | Progress Note ---
DATE: November 20, 2017 PODIATRY PROGRESS NOTE The patient was evaluated today after a central line was placed. Her angiogram is still awaiting. However, she has been cleared for this. This may be done later this evening. The patient is resting comfortably, in no distress. The foot is basically unchanged from previous evaluation with gangrenous change to the 3rd digit of the right foot. We will continue IV antibiotics and appropriate local wound care until her revascularization can be performed and follow with her at that point. Job#: [id number]
--- NOTE | 2017-11-20 19:17 | Progress Note ---
DATE: November 20, 2017 CARDIOLOGY PROGRESS NOTE SUBJECTIVE: The patient denies chest pain or shortness of breath. She was originally scheduled for peripheral angiogram today. However, her case was unfortunately bumped by another procedure. Will plan to reschedule for tomorrow. OBJECTIVE VITAL SIGNS: Temperature 96 degrees, pulse 82, respiratory rate 18, blood pressure 151/84, oxygen saturation 96% on room air. GENERAL: Awake, alert, obese, in no acute distress. LUNGS: Clear to auscultation bilaterally. No wheezes or crackles. CARDIOVASCULAR: Normal rate, regular rhythm. No murmur. Normal S1 and S2. ABDOMEN: Soft, nontender. EXTREMITIES: No edema. Right 3rd toe with dry gangrene. CARDIAC MEDICATIONS 1. Plavix 75 mg p.o. daily. 2. Aspirin 81 mg p.o. daily. 3. Atorvastatin 80 mg p.o. nightly. LABS: Sodium 139, potassium 3.8, chloride 108, CO2 of 21, BUN 27, creatinine 1.42. IMPRESSION 1. Right 3rd toe gangrene. 2. Peripheral arterial disease suggested by noninvasive Doppler evaluation. 3. Acute kidney injury, vykav-tw-ywdsbrb kidney disease, improved. 4. Diabetes mellitus. 5. Hypertension. 6. Hyperlipidemia. RECOMMENDATIONS: Continue current cardiac medications. Peripheral angiogram was rescheduled for tomorrow. Continue intravenous hydration. In the meantime, the patient agrees to proceed. Wound care per podiatry. Thank you for this consult. We will continue to follow. Job#: [id number]
[2017-11-20] MEDS: ATORVASTATIN 40 MG TAB PO SCH (20:10)
[2017-11-20] MEDS: INSULIN DETEMIR 100 UNIT/ML PEN SQ SCH (21:00)
[2017-11-21] VITALS (18 sets, daily range): BP systolic 119–183; BP diastolic 61–96
[2017-11-21] MEDS ORDERED: SODIUM CHLORIDE 0.9% 1000ML 1,000 ML IV SCH (00:15)
[2017-11-21] MEDS: PIPERACILLIN/TAZO 2.25 GM 50 ML IV SCH ×3 (06:10→21:45)
[2017-11-21 07:02] LABS: ANION GAP 12.1 mmol/L (8-16); CALCIUM 8.3 mg/dL (8.4-10.2); CREATININE, SERUM 1.22 mg/dL (0.57-1.11); POTASSIUM 4.1 mmol/L (3.5-5.1)
[2017-11-21] MEDS: INSULIN REGULAR, HUMAN 100 UNIT/1 ML 3ML VIAL SQ SCH ×3 (07:30→21:00)
[2017-11-21] MEDS: CANAGLIFLOZIN 100 MG TABLET PO SCH (08:13)
[2017-11-21] MEDS: ASPIRIN 81 MG CHEW TAB PO SCH (08:14)
[2017-11-21] MEDS: MUPIROCIN 2% OINT 22 GM TUBE TOP SCH (08:14)
[2017-11-21] MEDS: MULTIVITAMINS/MINERALS TAB PO SCH (08:14)
[2017-11-21] MEDS: CLOPIDOGREL BISULFATE 75 MG TAB PO SCH (08:14)
[2017-11-21] MEDS: GLIMEPIRIDE 2 MG TAB PO SCH ×2 (08:14→20:45)
[2017-11-21] MEDS: SODIUM BICARBONATE 650 MG TAB PO SCH ×2 (08:14→17:00)
[2017-11-21] MEDS: SITAGLIPTIN 100 MG TAB PO SCH (08:14)
[2017-11-21 10:19] LABS: ALPHA 2 GLOBULIN URINE PEP 9.7 % (.)
[2017-11-21] MEDS ORDERED: FENTANYL CITRATE/PF 100MCG/2 ML INJ ONE (14:30)
[2017-11-21] MEDS ORDERED: MIDAZOLAM HCL 2 MG/2 ML VIAL ONE (14:31)
[2017-11-21] MEDS ORDERED: HEPARIN SOD/SOD CHLORIDE 2,000 ML ONE (14:31)
[2017-11-21] MEDS ORDERED: LIDOCAINE HCL 2% LOCAL 20 ML VIAL ONE (14:31)
[2017-11-21] MEDS ORDERED: IOPAMIDOL 300MG/ML 50ML INFUS..BTL IV ONE (14:32)
[2017-11-21] MEDS ORDERED: SODIUM CHLORIDE 0.9% 1000ML 1,000 ML ONE ×3 (14:32→14:48)
[2017-11-21] MEDS ORDERED: HEPARIN SOD (PORCINE) 1000 UNIT/ML 30ML ONE (14:44)
[2017-11-21] MEDS ORDERED: NITROGLYCERIN/D5W 200 MCG/ML 250 ML ONE (14:44)
[2017-11-21] MEDS ORDERED: VERAPAMIL HCL 2.5 MG/ML 2 ML VIAL ONE (14:48)
[2017-11-21] MEDS ORDERED: IOPAMIDOL 300MG/ML 100 ML INFUS..BTL IV ONE (14:58)
--- NOTE | 2017-11-21 15:34 | Progress Note ---
DATE: November 21, 2017 CARDIOLOGY PROGRESS NOTE SUBJECTIVE: Patient denies chest pain or shortness of breath. She is n.p.o. for a peripheral angiogram today. OBJECTIVE: VITAL SIGNS: Temperature 97.8 degrees, pulse 101, respiratory rate 20, blood pressure 152/92. Oxygen saturation 96% on room air. GENERAL: Awake, alert, in no acute distress. Obese. LUNGS: Clear to auscultation bilaterally. No wheezes or crackles. CARDIOVASCULAR: Normal rate, regular rhythm. No murmur. Normal S1, S2. ABDOMEN: Soft, nontender. EXTREMITIES: No edema. Right third toe with gangrene. Dressing is intact. CARDIAC MEDICATIONS: 1. Plavix 75 mg p.o. daily. 2. Aspirin 81 mg p.o. daily. 3. Atorvastatin 80 mg p.o. each bedtime. LABORATORIES: Sodium 140, potassium 4.1, chloride 108, CO2 24, BUN 23, creatinine 1.22. IMPRESSION: 1. Right third toe gangrene. 2. Peripheral artery disease suggested by noninvasive Doppler evaluation. 3. Acute kidney injury on chronic kidney disease, improved. 4. Diabetes mellitus. 5. Hypertension. 6. Hyperlipidemia. RECOMMENDATIONS: Continue current cardiac medications. Peripheral angiogram this afternoon. Continue intravenous hydration and progression of her contrast. Wound care per podiatry. Thank you for this consult. We will continue to follow. Job#: [id number] [place]
[2017-11-21] MEDS ORDERED: PROTAMINE SULFATE 10 MG/ML 5 ML VIAL ONE (16:09)
[2017-11-21] MEDS ORDERED: PRASUGREL 10 MG TAB ONE (16:09)
[2017-11-21] MEDS ORDERED: SODIUM CHLORIDE 0.9% 50ML 50 ML ONE (16:09)
--- NOTE | 2017-11-21 20:52 | Operative Report ---
DATE OF PROCEDURE: November 21, 2017 INDICATIONS: Peripheral arterial disease and gangrene of the right lower extremity. PROCEDURES PERFORMED 1. Abdominal aortogram. 2. Bilateral lower extremity angiograms. 3. Selective placement of catheter from the left femoral artery to the right superficial femoral artery. 4. Additional 3rd-order catheter placement from the left femoral artery to the right anterior tibial artery. 5. Stent placement to the right superficial femoral artery with drug-coated balloon angioplasty. 6. Secondary thrombectomy of the right femoral artery. COMPLICATIONS: None. RECOMMENDATIONS: Dual antiplatelet therapy for at least 3 months. Staged intervention on the critical stenosis of the left superficial femoral artery. Access was obtained in the left femoral artery. A 6-Mongolian sheath was placed. Abdominal aortogram demonstrated widely patent abdominal aorta and iliac arteries bilaterally. The catheter was advanced from the left femoral artery to the right superficial femoral artery. There were 90% stenosis of the proximal right superficial femoral artery and complete occlusion of the mid right superficial femoral artery. The catheter was then advanced from the left femoral artery to the right infrapopliteal anterior tibial artery confirming 3-vessel runoff to the right foot. A decision was made to intervene on the right femoral artery. The patient received intravenous and intra-arterial heparin 9,000 units with an ACT of 285 as well as oral Effient for anticoagulation. The sheath was exchanged to a 45-cm, 6-Mongolian sheath advanced from the left femoral artery to the right superficial femoral artery. The lesion was crossed using a Glidewire. Balloon angioplasty with a 4-mm balloon following which a single 6 x 60 mm stent was deployed post dilatation with a 5-mm drug-coated balloon. Proximal lesion was primarily angioplastied with a 5-mm drug-coated balloon. Excellent end result. Less than 10% residual stenosis and 3-vessel runoff to the right foot. Left groin sheath was removed under manual pressure following administration of protamine. Patient will be maintained on dual antiplatelet therapy. Job#: [id number]
[2017-11-21] MEDS: INSULIN DETEMIR 100 UNIT/ML PEN SQ SCH (21:00)
[2017-11-21] MEDS: ATORVASTATIN 40 MG TAB PO SCH (21:15)
[2017-11-21] MEDS ORDERED: SODIUM CHLORIDE 0.9% 500ML 500 ML ONE (21:29)
[2017-11-22] VITALS (7 sets, daily range): BP systolic 145–171; BP diastolic 65–92
[2017-11-22] MEDS: PIPERACILLIN/TAZO 2.25 GM 50 ML IV SCH ×3 (05:42→21:37)
[2017-11-22] MEDS: VANCOMYCIN 1GM/NS 250 ML 250 ML IV SCH (06:10)
[2017-11-22] MEDS: INSULIN REGULAR, HUMAN 100 UNIT/1 ML 3ML VIAL SQ SCH ×4 (07:30→21:00)
[2017-11-22] MEDS: CANAGLIFLOZIN 100 MG TABLET PO SCH (07:58)
[2017-11-22] MEDS: GLIMEPIRIDE 2 MG TAB PO SCH ×2 (07:59→21:37)
[2017-11-22] MEDS: SODIUM BICARBONATE 650 MG TAB PO SCH ×2 (07:59→17:20)
[2017-11-22] MEDS: ASPIRIN 81 MG CHEW TAB PO SCH (07:59)
[2017-11-22] MEDS: SITAGLIPTIN 100 MG TAB PO SCH (07:59)
[2017-11-22] MEDS: CLOPIDOGREL BISULFATE 75 MG TAB PO SCH (07:59)
[2017-11-22] MEDS: MULTIVITAMINS/MINERALS TAB PO SCH (07:59)
[2017-11-22] MEDS: MUPIROCIN 2% OINT 22 GM TUBE TOP SCH (07:59)
--- NOTE | 2017-11-22 11:28 | Progress Note ---
DATE: PREOPERATIVE CONSULTATION Patient has been seen and followed for gangrenous 3rd digit on the right foot. She was admitted several days ago and has undergone medical workup. She has renal disease and after improvement in her renal function with treatment, she ultimately underwent an arteriogram and angioplasty. Her right lower extremity is warm on today's visit with a wet gangrenous 3rd digit on the right foot. Time now for amputation. Patient to agrees to accept all risks inherent to the procedure. Third digital amputation with I and D and possible proximal dissection and met head resection if necessary, right foot. The wound will be cultured in its deep base and a combination of closure and open packing to facilitate drainage and healing in this unfortunate diabetic patient with severe PAD. All questions asked were answered and the patient is scheduled for tomorrow morning, surgical debridement. Job#: [id number] [place]
--- NOTE | 2017-11-22 14:31 | Progress Note ---
DATE: November 22, 2017 CARDIOLOGY PROGRESS NOTE SUBJECTIVE: Patient denies chest pain or shortness of breath. She underwent peripheral angiogram yesterday with finding of 90% stenosis in bilateral SFAs with 100% stenosis in the right mid SFA. Patient had drug-coated balloon angioplasty and stent placement to these lesions with 3-vessel runoff with complete arch post procedure. OBJECTIVE: VITAL SIGNS: Temperature 98.1 degrees, pulse 50, respiratory rate 20, blood pressure 145/65. Oxygen saturation 97% on room air. GENERAL: Awake, alert, in no acute distress. LUNGS: Clear to auscultation bilaterally. No wheezes or crackles. CARDIOVASCULAR: Normal rate, regular rhythm. No murmur. Normal S1, S2. ABDOMEN: Soft, nontender. EXTREMITIES: No edema. Dressing is intact. CARDIAC MEDICATIONS 1. Plavix 75 mg p.o. daily. 2. Aspirin 81 mg p.o. daily. 3. Atorvastatin 80 mg p.o. each bedtime. LABS: None today. IMPRESSION 1. Right 3rd toe gangrene. 2. Peripheral artery disease with 90% stenosis in bilateral proximal superficial femoral arteries and 100% stenosis of the right mid superficial femoral artery status post drug-coated balloon angioplasty and stent placement to the mid superficial femoral artery with 3-vessel runoff below the knee and complete arch on the right after the procedure. 3. Acute kidney injury on chronic kidney disease, improved. 4. Diabetes mellitus. 5. Hypertension. 6. Hyperlipidemia. RECOMMENDATIONS: Continue current cardiac medications including dual antiplatelet therapy and intravenous hydration. Wound care per podiatry. The patient's blood pressure is not at goal. If her creatinine is stable in the next few days, we will plan to resume her lisinopril and hydrochlorothiazide. Thank you for this consult. We will continue to follow. Job#: [id number]
[2017-11-22] MEDS: INSULIN DETEMIR 100 UNIT/ML PEN SQ SCH (21:00)
[2017-11-22] MEDS: ATORVASTATIN 40 MG TAB PO SCH (21:37)
[2017-11-23] VITALS (9 sets, daily range): BP systolic 141–161; BP diastolic 68–90
[2017-11-23] MEDS: PIPERACILLIN/TAZO 2.25 GM 50 ML IV SCH ×3 (06:20→22:00)
[2017-11-23 07:00] LABS: BASOPHILS % 0.2 % (0.0-1.0); EOSINOPHILS # (AUTO) 0.3 (0.0-0.4); EOSINOPHILS % 1.8 % (0.0-6.0); HEMATOCRIT 30.7 % (34.2-44.1); HEMOGLOBIN 9.8 g/dL (12.0-16.0); LYMPHOCYTES % 13.9 % (18.0-39.1); MEAN CORPUSCULAR HGB CONC 31.9 g/dL (31-35); MEAN CORPUSCULAR VOLUME 90.8 fL (81-99); MONOCYTES % 6.9 % (4.4-11.3); NEUTROPHILS # (AUTO) 10.8 (2.1-6.9); NEUTROPHILS % 75.9 % (38.7-80.0); PLATELET COUNT 240 x10e3/uL (140-360); RED BLOOD COUNT 3.38 x10e6/uL (3.6-5.1); RED CELL DISTRIBUTION WIDTH 15.2 % (11.7-14.4)
[2017-11-23 07:16] LABS: ALANINE AMINOTRANSFERASE 14 IU/L (0-55); ALBUMIN 2.9 g/dL (3.5-5.0); ALBUMIN/GLOBULIN RATIO 0.9 (0.8-2.0); ALKALINE PHOSPHATASE 89 IU/L (40-150); BLOOD UREA NITROGEN 19 mg/dL (7-26); BUN/CREATININE RATIO 13 (6-25); CALCIUM 8.4 mg/dL (8.4-10.2); CARBON DIOXIDE 25 mmol/L (22-29); CHLORIDE 107 mmol/L (98-107); CREATININE, SERUM 1.41 mg/dL (0.57-1.11); EST GLOMERULAR FILTRATION RATE 37 ML/MIN (60-); GLUCOSE 103 mg/dL (74-118); SODIUM 140 mmol/L (136-145)
[2017-11-23] MEDS: INSULIN REGULAR, HUMAN 100 UNIT/1 ML 3ML VIAL SQ SCH ×4 (07:30→21:00)
[2017-11-23] MEDS: CANAGLIFLOZIN 100 MG TABLET PO SCH (07:30)
[2017-11-23] MEDS: GLIMEPIRIDE 2 MG TAB PO SCH ×2 (08:00→20:00)
[2017-11-23] MEDS ORDERED: MUPIROCIN 2% OINT 22 GM TUBE ONE (08:28)
[2017-11-23] MEDS ORDERED: BUPIVACAINE HCL 0.5% INJ 30 ML VIAL INJ ONE (08:28)
[2017-11-23] MEDS: MUPIROCIN 2% OINT 22 GM TUBE TOP SCH (09:00)
[2017-11-23] MEDS: SODIUM BICARBONATE 650 MG TAB PO SCH ×2 (09:00→16:40)
[2017-11-23] MEDS: ASPIRIN 81 MG CHEW TAB PO SCH (09:00)
[2017-11-23] MEDS: CLOPIDOGREL BISULFATE 75 MG TAB PO SCH (09:00)
[2017-11-23] MEDS: SITAGLIPTIN 100 MG TAB PO SCH (09:00)
[2017-11-23] MEDS: MULTIVITAMINS/MINERALS TAB PO SCH (09:00)
[2017-11-23] MEDS ORDERED: BACITRACIN 50,000 UNIT VIAL ONE (09:11)
--- NOTE | 2017-11-23 10:19 | Operative Report ---
DATE OF PROCEDURE: November 23, 2017 PREOPERATIVE DIAGNOSIS: Gangrene, 3rd digit, right foot. POSTOPERATIVE DIAGNOSIS: Gangrene, 3rd digit, right foot. TITLE OF OPERATION: Amputation, 3rd digit and metatarsal head, right foot. ANESTHESIA: General endotracheal. HEMOSTASIS: None used. PROCEDURE IN DETAIL: The patient was taken to the OR in a mildly sedated state and placed on the operating table and prepped and draped in the usual aseptic manner utilizing Betadine prep. Right lower extremity was placed upon the operating table. No tourniquet was used. A [id number]-plaur-[id number] incision was placed across the dorsal aspect of the foot and circumferentially around the 3rd digit of the right foot. The incision was deepened via sharp and blunt dissection down to the level of the capsule. The capsule itself was disarticulated and the digit removed in toto. The area was irrigated with copious amounts of sterile bacitracin solution. The head of the 1st metatarsal was noted to be dystrophic and was resected as well. This also facilitated closure without tension. The area was cultured prior to irrigation and the digit itself removed from the wound. All superficial bleeders were electrocoagulated. Deep closure was 3-0 Vicryl. Subcutaneous closure and skin closure were 3-0 nylon. There was a packing performed to the distal aspect of the interdigital area to facilitate drainage. The patient tolerated both anesthetic and procedure very well. Human tissue allograft was injected in a flowable form to help facilitate closure in this [id number] patient. The patient was then transported to the PACU with vital signs stable and in apparent satisfactory condition, having tolerated both the anesthetic and the procedure very well. Job#: [id number]
[2017-11-23] MEDS ORDERED: SEVOFLURANE INHAL SOLN 250 ML PEN BTL ONE (11:42)
[2017-11-23] MEDS ORDERED: PROPOFOL IV EMULSION 10 MG/ML 20 ML VIAL ONE (11:42)
[2017-11-23] MEDS ORDERED: ONDANSETRON HCL INJ 2 MG/ML VIAL ONE (11:42)
[2017-11-23] MEDS ORDERED: DEXAMETHASONE SOD PHOS INJ 4 MG/ML VIAL ONE (11:42)
[2017-11-23] MEDS ORDERED: LIDOCAINE HCL 2% LOCAL INJ 5 ML SDV VIAL INJ ONE (11:42)
[2017-11-23 14:30] LABS: BASOPHILS # (AUTO) 0.1 (0.0-0.1); BASOPHILS % 0.3 % (0.0-1.0); EOSINOPHILS % 0.1 % (0.0-6.0); HEMATOCRIT 34.4 % (34.2-44.1); HEMOGLOBIN 10.9 g/dL (12.0-16.0); LYMPHOCYTES # (AUTO) 1.1 (1.0-3.2); LYMPHOCYTES % 6.8 % (18.0-39.1); MEAN CORPUSCULAR HEMOGLOBIN 29.1 pg (28-32); MEAN CORPUSCULAR HGB CONC 31.7 g/dL (31-35); MONOCYTES # (AUTO) 0.3 (0.2-0.8); MONOCYTES % 1.7 % (4.4-11.3); NEUTROPHILS # (AUTO) 14.2 (2.1-6.9); NEUTROPHILS % 89.5 % (38.7-80.0); PLATELET COUNT 248 x10e3/uL (140-360); RED BLOOD COUNT 3.74 x10e6/uL (3.6-5.1); RED CELL DISTRIBUTION WIDTH 15.3 % (11.7-14.4)
[2017-11-23] MEDS ORDERED: HYDROCODONE/APAP 10MG-325MG TAB PO PRN (14:30)
[2017-11-23 14:45] LABS: ANION GAP 14.7 mmol/L (8-16); CALCIUM 8.3 mg/dL (8.4-10.2); CREATININE, SERUM 1.42 mg/dL (0.57-1.11); POTASSIUM 4.7 mmol/L (3.5-5.1)
[2017-11-23] MEDS ORDERED: FENTANYL CITRATE/PF 100MCG/2 ML INJ ONE (18:41)
[2017-11-23] MEDS ORDERED: MIDAZOLAM HCL 2 MG/2 ML VIAL ONE (18:41)
--- NOTE | 2017-11-23 18:49 | Progress Note ---
DATE: November 23, 2017 CARDIOLOGY PROGRESS NOTE SUBJECTIVE: The patient denies chest pain or shortness of breath. She is status post amputation of the right 3rd digit and metatarsal head by Dr. Ramos today. OBJECTIVE VITAL SIGNS: Temperature 97.6 degrees, pulse 84, respiratory rate 16, blood pressure 153/89, oxygen saturation 96% on room air. GENERAL: Awake, alert, in no acute distress. LUNGS: Clear to auscultation bilaterally. No wheezes or crackles. CARDIOVASCULAR: Normal rate, regular rhythm. No murmur. Normal S1 and S2. ABDOMEN: Soft, nontender. EXTREMITIES: No edema. CARDIAC MEDICATIONS 1. Atorvastatin 80 mg p.o. nightly. 2. Plavix 75 mg p.o. daily. 3. Aspirin 81 mg p.o. daily. LABS: WBC 15.8, hemoglobin 10.9, hematocrit 34.4, platelets 248. Sodium 139, potassium 4.7, chloride 106, CO2 23, BUN 20, creatinine 1.42. IMPRESSION 1. Right 3rd toe gangrene. 2. Peripheral arterial disease with 90% stenosis in bilateral proximal superficial femoral arteries and 100% stenosis in the right mid superficial femoral artery status post drug-coated balloon angioplasty and stent placement in the mid superficial femoral artery with 3-vessel runoff below the knee, incomplete arch on the right after procedure. 3. Acute kidney injury on chronic kidney disease, improved. 4. Diabetes mellitus. 5. Hypertension. 6. Hyperlipidemia. RECOMMENDATIONS: Continue current cardiac medications including dual antiplatelet therapy. Wound care per Podiatry. Patient's blood pressure is not at goal. After renal function is stable, we will resume her home lisinopril-hydrochlorothiazide. Thank you for this consult. We will continue to follow. Job#: [id number] [place]
[2017-11-23] MEDS: INSULIN DETEMIR 100 UNIT/ML PEN SQ SCH (21:00)
[2017-11-23] MEDS: ATORVASTATIN 40 MG TAB PO SCH (21:00)
[2017-11-24] VITALS (7 sets, daily range): BP systolic 123–149; BP diastolic 58–88
[2017-11-24] MEDS: PIPERACILLIN/TAZO 2.25 GM 50 ML IV SCH ×3 (05:47→21:45)
[2017-11-24] MEDS: VANCOMYCIN 1GM/NS 250 ML 250 ML IV SCH (05:54)
[2017-11-24] MEDS: INSULIN REGULAR, HUMAN 100 UNIT/1 ML 3ML VIAL SQ SCH ×4 (07:30→20:01)
[2017-11-24] MEDS: MUPIROCIN 2% OINT 22 GM TUBE TOP SCH (09:00)
[2017-11-24] MEDS: ASPIRIN 81 MG CHEW TAB PO SCH (09:03)
[2017-11-24] MEDS: LISINOPRIL 20 MG TAB PO SCH (09:03)
[2017-11-24] MEDS: CANAGLIFLOZIN 100 MG TABLET PO SCH (09:03)
[2017-11-24] MEDS: CLOPIDOGREL BISULFATE 75 MG TAB PO SCH (09:03)
[2017-11-24] MEDS: SITAGLIPTIN 100 MG TAB PO SCH (09:03)
[2017-11-24] MEDS: MULTIVITAMINS/MINERALS TAB PO SCH (09:03)
[2017-11-24] MEDS: SODIUM BICARBONATE 650 MG TAB PO SCH ×2 (09:03→16:46)
[2017-11-24] MEDS: HYDROCHLOROTHIAZIDE 25 MG TAB PO SCH (09:03)
[2017-11-24] MEDS: GLIMEPIRIDE 2 MG TAB PO SCH ×2 (09:03→20:01)
[2017-11-24] MEDS: ATORVASTATIN 40 MG TAB PO SCH (20:01)
[2017-11-24] MEDS: INSULIN DETEMIR 100 UNIT/ML PEN SQ SCH (21:00)
[2017-11-24] MEDS: LOPERAMIDE HCL 2 MG CAP PO PRN (21:30)
[2017-11-25] VITALS (8 sets, daily range): BP systolic 121–156; BP diastolic 61–81
--- NOTE | 2017-11-25 01:34 | Progress Note ---
DATE: November 24, 2017 CARDIOLOGY PROGRESS NOTE SUBJECTIVE: No new complaints. Status post 3rd digit metatarsal head amputation by Dr. Ramos. Dressings in place. OBJECTIVE VITALS: Temperature 96.6, heart rate 87, respiratory rate 20, blood pressure 149/78, O2 sat 96% on room air. GENERAL: No acute distress. Alert. NECK: No JVD. CHEST: Clear to auscultation. CARDIOVASCULAR: Regular rate and rhythm. Normal S1 and S2. ABDOMEN: Soft. EXTREMITIES: No edema with right foot covered with dressings. CARDIOVASCULAR MEDICATIONS: Reviewed. 1. Lisinopril 20 mg daily. 2. Hydrochlorothiazide 25 mg daily. 3. Clopidogrel 75 mg daily. 4. Aspirin 81 mg daily. 5. Atorvastatin 80 mg at bedtime. 6. P.r.n. clonidine. STUDIES: For today, glucose 111. ASSESSMENT 1. Right 3rd toe gangrene: Status post 3rd ray amputation by Dr. Ramos. 2. Peripheral arterial disease: Status post revascularization with residual incomplete arch to the right lower extremity postprocedure. 3. Acute kidney injury on chronic kidney disease, improving. 4. Diabetes mellitus. 5. Hypertension. 6. Dyslipidemia. RECOMMENDATIONS 1. Continue current cardiovascular medications. 2. Monitor renal function. 3. Wound care per podiatry. 4. Antibiotics per primary service. Job#: [id number] [place]
[2017-11-25] MEDS: PIPERACILLIN/TAZO 2.25 GM 50 ML IV SCH ×3 (06:37→21:51)
[2017-11-25] MEDS: INSULIN REGULAR, HUMAN 100 UNIT/1 ML 3ML VIAL SQ SCH ×4 (07:30→20:17)
[2017-11-25] MEDS: ASPIRIN 81 MG CHEW TAB PO SCH (08:42)
[2017-11-25] MEDS: CANAGLIFLOZIN 100 MG TABLET PO SCH (08:42)
[2017-11-25] MEDS: MULTIVITAMINS/MINERALS TAB PO SCH (08:42)
[2017-11-25] MEDS: SITAGLIPTIN 100 MG TAB PO SCH (08:43)
[2017-11-25] MEDS: GLIMEPIRIDE 2 MG TAB PO SCH ×2 (08:43→20:13)
[2017-11-25] MEDS: LISINOPRIL 20 MG TAB PO SCH (08:43)
[2017-11-25] MEDS: SODIUM BICARBONATE 650 MG TAB PO SCH ×2 (08:43→16:55)
[2017-11-25] MEDS: CLOPIDOGREL BISULFATE 75 MG TAB PO SCH (08:43)
[2017-11-25] MEDS: LOPERAMIDE HCL 2 MG CAP PO PRN ×2 (08:43→20:13)
[2017-11-25] MEDS: HYDROCHLOROTHIAZIDE 25 MG TAB PO SCH (08:43)
[2017-11-25] MEDS: MUPIROCIN 2% OINT 22 GM TUBE TOP SCH (08:43)
--- NOTE | 2017-11-25 10:20 | Progress Note ---
DATE: November 25, 2017 CARDIOLOGY PROGRESS NOTE SUBJECTIVE: No complaints. Doing well today. OBJECTIVE VITALS: Temperature 97.4, heart rate 87, respiratory rate 18, blood pressure 121/63, and O2 sat 98% on room air. GENERAL: No acute distress. Alert. NECK: No JVD. CHEST: Clear to auscultation. CARDIOVASCULAR: Regular rate and rhythm. Normal S1 and S2. ABDOMEN: Soft. EXTREMITIES: No edema. Warm distal extremities. Right foot covered with dressings. CARDIOVASCULAR MEDICATIONS 1. Lisinopril 20 mg daily. 2. Clopidogrel 75 mg daily. 3. Hydrochlorothiazide 25 mg daily. 4. Aspirin 81 mg daily. 5. Atorvastatin 80 mg at bedtime. 6. Clonidine 0.4 mg q.6 h. p.r.n. LAB WORK: For today, none available. ASSESSMENT 1. Right third toe gangrene: Status post amputation by Dr. Ramos. 2. Peripheral arterial disease: Status post revascularization with residual incomplete arch to the right lower extremity post procedure. 3. Acute kidney injury on chronic kidney disease. 4. Diabetes mellitus. 5. Hypertension. 6. Dyslipidemia. RECOMMENDATIONS: Await removal of hemostatic dressings to assess response. Continue antibiotics. Continue current cardiovascular medications. Advised on intermittent assessment of renal function. Job#: [id number] [place]
[2017-11-25] MEDS: ATORVASTATIN 40 MG TAB PO SCH (20:13)
[2017-11-25] MEDS: INSULIN DETEMIR 100 UNIT/ML PEN SQ SCH (20:17)
[2017-11-26 00:20] VITALS: BP 108/54
[2017-11-26 04:00] VITALS: BP 135/65
[2017-11-26] MEDS: PIPERACILLIN/TAZO 2.25 GM 50 ML IV SCH ×2 (06:17→13:25)
[2017-11-26 06:33] LABS: BASOPHILS # (AUTO) 0.1 (0.0-0.1); BASOPHILS % 0.3 % (0.0-1.0); EOSINOPHILS # (AUTO) 0.3 (0.0-0.4); EOSINOPHILS % 1.1 % (0.0-6.0); HEMATOCRIT 32.2 % (34.2-44.1); HEMOGLOBIN 10.4 g/dL (12.0-16.0); LYMPHOCYTES # (AUTO) 3.3 (1.0-3.2); LYMPHOCYTES % 13.6 % (18.0-39.1); MEAN CORPUSCULAR HEMOGLOBIN 29.2 pg (28-32); MEAN CORPUSCULAR HGB CONC 32.3 g/dL (31-35); MEAN CORPUSCULAR VOLUME 90.4 fL (81-99); MONOCYTES # (AUTO) 1.4 (0.2-0.8); MONOCYTES % 5.7 % (4.4-11.3); NEUTROPHILS # (AUTO) 19.1 (2.1-6.9); NEUTROPHILS % 77.9 % (38.7-80.0); PLATELET COUNT 293 x10e3/uL (140-360); RED BLOOD COUNT 3.56 x10e6/uL (3.6-5.1); RED CELL DISTRIBUTION WIDTH 15.1 % (11.7-14.4)
[2017-11-26] MEDS: VANCOMYCIN 1GM/NS 250 ML 250 ML IV SCH (06:45)
[2017-11-26 06:54] LABS: ALBUMIN 2.8 g/dL (3.5-5.0); ALBUMIN/GLOBULIN RATIO 0.7 (0.8-2.0); ANION GAP 11.6 mmol/L (8-16); CALCIUM 8.5 mg/dL (8.4-10.2); CREATININE, SERUM 1.41 mg/dL (0.57-1.11); POTASSIUM 3.6 mmol/L (3.5-5.1)
[2017-11-26] MEDS: INSULIN REGULAR, HUMAN 100 UNIT/1 ML 3ML VIAL SQ SCH ×3 (07:30→16:30)
[2017-11-26 08:00] VITALS: BP 145/67
[2017-11-26] MEDS: CANAGLIFLOZIN 100 MG TABLET PO SCH (08:24)
[2017-11-26] MEDS: GLIMEPIRIDE 2 MG TAB PO SCH (08:25)
[2017-11-26] MEDS: CLOPIDOGREL BISULFATE 75 MG TAB PO SCH (08:25)
[2017-11-26] MEDS: SITAGLIPTIN 100 MG TAB PO SCH (08:25)
[2017-11-26] MEDS: SODIUM BICARBONATE 650 MG TAB PO SCH (08:25)
[2017-11-26] MEDS: MULTIVITAMINS/MINERALS TAB PO SCH (08:25)
[2017-11-26] MEDS: ASPIRIN 81 MG CHEW TAB PO SCH (08:25)
[2017-11-26] MEDS: MUPIROCIN 2% OINT 22 GM TUBE TOP SCH (08:25)
[2017-11-26] MEDS: LISINOPRIL 20 MG TAB PO SCH (08:25)
[2017-11-26] MEDS: HYDROCHLOROTHIAZIDE 25 MG TAB PO SCH (08:25)
[2017-11-26 08:50] VITALS: BP 145/67
[2017-11-26 09:34] LABS: BASOPHILS # (AUTO) 0.1 (0.0-0.1); BASOPHILS % 0.2 % (0.0-1.0); EOSINOPHILS # (AUTO) 0.2 (0.0-0.4); HEMOGLOBIN 9.6 g/dL (12.0-16.0); LYMPHOCYTES # (AUTO) 1.6 (1.0-3.2); LYMPHOCYTES % 7.7 % (18.0-39.1); MEAN CORPUSCULAR VOLUME 90.6 fL (81-99); MONOCYTES # (AUTO) 1.1 (0.2-0.8); MONOCYTES % 5.3 % (4.4-11.3); NEUTROPHILS # (AUTO) 17.8 (2.1-6.9); NEUTROPHILS % 84.7 % (38.7-80.0); PLATELET COUNT 259 x10e3/uL (140-360); RED BLOOD COUNT 3.31 x10e6/uL (3.6-5.1); RED CELL DISTRIBUTION WIDTH 15.1 % (11.7-14.4)
[2017-11-26 12:00] VITALS: BP 150/82
[2017-11-26] MEDS: LOPERAMIDE HCL 2 MG CAP PO PRN (13:25)
[2017-11-26 16:00] VITALS: BP 149/80
--- NOTE | 2017-11-26 20:13 | Progress Note ---
DATE: November 26, 2017 CARDIOLOGY PROGRESS NOTE SUBJECTIVE: The patient denies chest pain or shortness of breath. OBJECTIVE VITAL SIGNS: Temperature 97.5 degrees, pulse 95, respiratory rate 20, blood pressure 150/82, oxygen saturation 97% on room air. GENERAL: Awake, alert, in no acute distress. LUNGS: Clear to auscultation bilaterally. No wheezes or crackles. CARDIOVASCULAR: Normal rate, regular rhythm. No murmur. Normal S1 and S2. ABDOMEN: Soft. EXTREMITIES: No edema. Right foot with dressing intact. CARDIAC MEDICATIONS 1. Atorvastatin 80 mg p.o. nightly. 2. Hydrochlorothiazide 25 mg p.o. daily. 3. Plavix 75 mg p.o. daily. 4. Aspirin 81 mg p.o. daily. LABS: WBC 21.06, hemoglobin 9.6, hematocrit 30, platelets 259,000, sodium 135, potassium 3.6, chloride 100, CO2 of 27, BUN 28, creatinine 1.41. IMPRESSION 1. Right 3rd toe gangrene, status post amputation by Dr. Ramos. 2. Peripheral arterial disease status post revascularization with stent placement, thrombectomy and drug-coated balloon angioplasty and thrombectomy of the right superficial femoral artery with 3-vessel runoff to the right foot. 3. incomplete arch on the right after procedure. 4. Acute kidney injury on chronic kidney disease. 5. Diabetes mellitus. 6. Hypertension. 7. Dyslipidemia. RECOMMENDATIONS: Continue current cardiac medications. Antibiotics per primary service. Renal function has remained stable. Wound care per podiatry. The patient's blood pressure is labile, but typically not at goal. If it continues to be elevated, plan to increase lisinopril. Thank you for this consult. We will continue to follow. Job#: [id number]
--- NOTE | 2017-11-27 13:40 | Diagnostic Imaging Report ---
PROCEDURE:TUNNELLED CVC CATH PLACEMENT COMPARISON:None. INDICATIONS: Need for long-term IV antibiotics. COMPLICATIONS: None. MEDICATIONS: None. BLOOD LOSS: Less than 20 cc. PROCEDURE: Ultrasonographic evaluation of the right neck demonstrated a patent compressible right internal jugular vein. The right neck and upper chest wall were prepped and draped in the usual sterile fashion. 1% lidocaine was infused into the subcutaneous tissues for local anesthesia. Utilizing direct sonographic guidance, a 21 gauge needle was advanced into the right internal jugular vein. A 0.018 inch wire was advanced centrally. An access sheath was placed over the wire to secure the vascular access. Attention was directed toward the creation of a subcutaneous tunnel. One percent lidocaine was infused into the subcutaneous tissues for local anesthesia. A skin incision made with a #11 blade. A double-lumen PICC was tunneled through the skin about the vascular access site. A peel-away sheath was placed over the wire. The wire and stent were removed. The catheter was cut to the needed length. The catheter was placed within the peel-away sheath. The peel-away sheath was removed. The catheter tip was positioned within the right atrium. The catheter ports demonstrate proper function with aspiration and flush of sterile saline. The catheter lumens were flushed with sterile saline. The catheter was secured to the skin with 3-0 Ethilon suture. The vascular access site was closed with Dermabond. Sterile dressings were applied. There are no immediate complications. The patient tolerated the procedure well. The patient was transferred to the post procedure area in stable unchanged condition. CONCLUSION: Successful placement of a right internal jugular tunneled PICC catheter utilizing ultrasound and fluoroscopic guidance. Dictated by: Tommy Jasmine M.D. on 11/27/2017 at 13:49 Electronically approved by: Tommy Jasmine M.D. on 11/27/2017 at 13:49
== END 2017-11-26 19:30 | disposition home or self-care (01) | DRG 253 ==
LOC: ER 13:46 → MED/SURG2 19:30
PROVIDERS: ADMIT Internal Medicine; ATTEND Internal Medicine
PROC: 02HV33Z Insertion of Infusion Device into Superior Vena Cava, Percutaneous Approach (ICD-10-PCS; 2017-11-20)
PROC: B548ZZA Ultrasonography of Superior Vena Cava, Guidance (ICD-10-PCS; 2017-11-20)
PROC: 047K34Z Dilation of Right Femoral Artery with Drug-eluting Intraluminal Device, Percutaneous Approach (ICD-10-PCS; 2017-11-21)
PROC: 047L3ZZ Dilation of Left Femoral Artery, Percutaneous Approach (ICD-10-PCS; 2017-11-21)
PROC: 047P3ZZ Dilation of Right Anterior Tibial Artery, Percutaneous Approach (ICD-10-PCS; 2017-11-21)
PROC: 0Y6T0Z0 Detachment at Right 3rd Toe, Complete, Open Approach (ICD-10-PCS; principal; 2017-11-23 08:30)
DX: E11.52 Type 2 diabetes mellitus with diabetic peripheral angiopathy with gangrene (principal); N17.9 Acute kidney failure, unspecified; E87.2 Acidosis; N18.4 Chronic kidney disease, stage 4 (severe); E11.22 Type 2 diabetes mellitus with diabetic chronic kidney disease; L03.115 Cellulitis of right lower limb; E87.1 Hypo-osmolality and hyponatremia; M86.8X7 Other osteomyelitis, ankle and foot; E11.65 Type 2 diabetes mellitus with hyperglycemia; E87.5 Hyperkalemia; I12.9 Hypertensive chronic kidney disease with stage 1 through stage 4 chronic kidney disease, or unspecified chronic kidney disease; Z87.891 Personal history of nicotine dependence; Z88.5 Allergy status to narcotic agent; E78.5 Hyperlipidemia, unspecified; E66.9 Obesity, unspecified; Z68.35 Body mass index [BMI] 35.0-35.9, adult; D64.9 Anemia, unspecified; B95.4 Other streptococcus as the cause of diseases classified elsewhere; E11.69 Type 2 diabetes mellitus with other specified complication
CPT/HCPCS: 36140; 36415; 36558; 37224; 37226; 71010; 74470; 75716; 76000; 76770; 77001; 77002; 80048; 80053; 80202; 81001; 82948; 83735; 84100; 84165; 84166; 85025; 85610; 85730; 87071; 87075; 87086; 87205; 88305; 88311; 93005; 93306; 93925; 99284; C1751; C1769; C2623; J1100; J1644; J2001; J2250; J2405; J2543; J2720; J3370; J7030; J7040; J7799; Q9967

== ENCOUNTER 2019-02-11 13:47 | Outpatient (RCR) | payer MEDICARE ==
[~2019-02-11 13:47] MED LIST changes: +MELOXICAM7.5 MG PO
== END 2019-02-25 ==
LOC: PT 13:47
PROVIDERS: ATTEND Psychiatry & Neurology Clinical Neurophysiology
DX: R26.2 Difficulty in walking, not elsewhere classified (principal); R53.81 Other malaise; M62.81 Muscle weakness (generalized)

== ENCOUNTER → 2019-06-24 | Day surgery (SDC) | payer MEDICARE ==
[2019-06-23 12:49] LABS: BASOPHILS # (AUTO) 0.1 (0.0-0.1); BASOPHILS % 0.4 % (0.0-1.0); EOSINOPHILS # (AUTO) 0.6 (0.0-0.4); EOSINOPHILS % 3.2 % (0.0-6.0); HEMATOCRIT 39.2 % (34.2-44.1); HEMOGLOBIN 12.5 g/dL (12.0-16.0); LYMPHOCYTES # (AUTO) 3.1 (1.0-3.2); MEAN CORPUSCULAR HEMOGLOBIN 29.6 pg (28-32); MEAN CORPUSCULAR HGB CONC 31.9 g/dL (31-35); MEAN CORPUSCULAR VOLUME 92.9 fL (81-99); MONOCYTES % 5.1 % (4.4-11.3); NEUTROPHILS # (AUTO) 14.3 (2.1-6.9); NEUTROPHILS % 74.2 % (38.7-80.0); PLATELET COUNT 308 x10e3/uL (140-360); RED BLOOD COUNT 4.22 x10e6/uL (3.6-5.1); RED CELL DISTRIBUTION WIDTH 13.7 % (11.7-14.4)
[2019-06-23 13:00] LABS: INR 0.9; PROTHROMBIN TIME 12.6 seconds (11.9-14.5)
[2019-06-23 13:07] LABS: ALBUMIN 3.4 g/dL (3.5-5.0); ALBUMIN/GLOBULIN RATIO 0.9 (0.8-2.0); ANION GAP 16.7 mmol/L (8-16); CALCIUM 9.3 mg/dL (8.4-10.2); CREATININE, SERUM 2.1 mg/dL (0.57-1.11)
[2019-06-23 13:12] LABS: POTASSIUM 5.7 mmol/L (3.5-5.1)
--- NOTE | 2019-06-23 14:45 | NUR ---
Message left for Dr. Hallman regarding abnormal labs.
--- NOTE | 2019-06-23 14:55 | NUR ---
Dr. Hallman notified of abnormal lab values: potassium 5.7, BUN 65, and creatinine 2.10, and eGFR 23. Dr. Hallman ordered for patient to arrive at 0830 on 06/24/19, repeat BMP, and Pre-hydrate with normal saline IV at 100ml/hr.
--- NOTE | 2019-06-23 14:59 | NUR ---
Attempted to contact patient to notify of change of arrival time. No answer. 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
--- NOTE | 2019-06-23 16:00 | NUR ---
Patient called back and notified of to arrive at 0830 on 06/24/19 and no eating or drinking after midnight with change of arrival time. Patient verbalized understanding and had no questions at this time.
[~2019-06-24] VITALS: Ht 160 cm; Wt 89.4 kg
[~2019-06-24] MED LIST changes: +ALPRAZOLAM 0.5 MG TAB ONE; +DEXTROSE 50% SYRINGE 50 ML IV ONE; +DIPHENHYDRAMINE HCL 25 MG CAP ONE; +FENTANYL CITRATE/PF 100MCG/2 ML INJ ONE; +FISH OIL 1,0001 EAC2 PO; +GENTLE IRON PO; +HEPARIN SOD/SOD CHLORIDE 2,000 ML ONE; +IOPAMIDOL 370 MG/ML 200 ML INFUS..BTL INJ ONE; +LIDOCAINE HCL 2% LOCAL 20 ML VIAL ONE; +MIDAZOLAM HCL 2 MG/2 ML VIAL ONE; +SODIUM BICARBO650 MG PO; +SODIUM CHLORIDE 0.9% 1000ML 1,000 ML ONE; +SPIRONOLACTONE25 MG PO; +TURMERIC COMPLEX PO; +VITAMIN D31000 UNIT PO
--- OUTSIDE RECORDS SUMMARY | 2019-06-24 08:01 | XMS REPORT ---
Author Author [facility] Address Unknown Phone Unavailable Care Team Providers Care Behavioral Health Care Coordinator Name Role Phone JUNO BRADY Unavailable Unavailable Problems This patient has no known problems. Allergies, Adverse Reactions, Alerts This patient has no known allergies or adverse reactions. Medications This patient has no known medications. Results Test Description Test Time Test Comments Text Results Atomic Results Result Comments IR CONSULT [place] [address] Patient Name: DEMARCUS REAVES MR #: [id number] : 1950 Age/Sex: 67/F Req #: [id number] Adm Physician: JUNO BRADY MD Ordered by: EARLENE MILLAN MD Report #: [id number] Location: [facility]/SURG Room/Bed: [facility] Procedure: [id number] DX/IR CONSULT Exam Date: Exam Time: REPORT STATUS: Signed PROCEDURE: TUNNELLED CVC CATH PLACEMENT COMPARISON: None. INDICATIONS: Need for long-term IV antibiotics. COMPLICATIONS: None. MEDICATIONS: None. BLOOD LOSS: Less than 20 cc. PROCEDURE: Ultrasonographic evaluation of the right neck demonstrated a patent compressible right internal jugular vein. The right neck and upper chest wall were prepped and draped in the usual sterile fashion. 1% lidocaine was infused into the subcutaneous tissues for local anesthesia. Utilizing direct sonographic guidance, a 21 gauge needle was advanced into the right internal jugular vein. A 0.018 inch wire was advanced centrally. An access sheath was placed over the wire to secure the vascular access. Attention was directed toward the creation of a subcutaneous tunnel. One percent lidocaine was infused into the subcutaneous tissues for local anesthesia. A skin incision made with a #11 blade. A double-lumen PICC was tunneled through the skin about the vascular access site. A peel-away sheath was placed over the wire. The wire and stent were removed. The catheter was cut to the needed length. The catheter was placed within the peel-away sheath. The peel-away sheath was removed. The catheter tip was positioned within the right atrium. The catheter ports demonstrate proper function with aspiration and flush of sterile saline. The catheter lumens were flushed with sterile saline. The catheter was secured to the skin with 3-0 Ethilon suture. The vascular access site was closed with Dermabond. Sterile dressings were applied. There are no immediate complications. The patient tolerated the procedure well. The patient was transferred to the post procedure area in stable unchanged condition. CONCLUSION: Successful placement of a right internal jugu lar tunneled PICC catheter utilizing ultrasound and fluoroscopic guidance. Dictated by: Bipin Bhagat M.D. on 11/27/2017 at 13:49 Electronically approved by: Bipin Bhagat M.D. on 11/27/2017 at 13:49 Dictated By: BIPIN BHAGAT MD 1349 Transcribed By: MURRAY on 11/27/17 1349 COPY TO: EARLENE MILLAN MD SPECIAL PROCEDURE IN VP CARE MANAGEMENT [place] [address] Patient Name: DEMARCUS REAVES MR #: [id number] : 1950 Age/Sex: 67/F Req #: [id number] Adm Physician: JUNO BRADY MD Ordered by: JUNO BRADY MD Report #: [id number] Location: MED/SURG2 Room/Bed: [facility] Procedure: [id number] IR/SPECIAL PROCEDURE IN VP CARE MANAGEMENT Exam Date: Exam Time: REPORT STATUS: Signed PROCEDURE: TUNNELLED CVC CATH PLACEMENT COMPARISON: None. INDICATIONS: Need for long-term IV antibiotics. COMPLICATIONS: None. MEDICATIONS: None. BLOOD LOSS: Less than 20 cc. PROCEDURE: Ultrasonographic evaluation of the right neck demonstrated a patent compressible right internal jugular vein. The right neck and upper chest wall were prepped and draped in the usual sterile fashion. 1% lidocaine was infused into the subcutaneous tissues for local anesthesia. Utilizing direct sonographic guidance, a 21 gauge needle was advanced into the right internal jugular vein. A 0.018 inch wire was advanced centrally. An access sheath was placed over the wire to secure the vascular access. Attention was directed toward the creation of a subcutaneous tunnel. One percent lidocaine was infused into the subcutaneous tissues for local anesthesia. A skin incision made with a #11 blade. A double-lumen PICC was tunneled through the skin about the vascular access site. A peel-away sheath was placed over the wire. The wire and stent were removed. The catheter was cut to the needed length. The catheter was placed within the peel-away sheath. The peel-away sheath was removed. The catheter tip was positioned within the right atrium. The catheter ports demonstrate proper function with aspiration and flush of sterile saline. The catheter lumens were flushed with sterile saline. The catheter was secured to the skin with 3-0 Ethilon suture. The vascular access site was closed with Dermabond. Sterile dressings were applied. There are no immediate complications. The patient tolerated the procedure well. The patient was transferred to the post procedure area in stable unchanged condition. CONCLUSION: Successful placement of a right internal jugular tunneled PICC catheter utilizing ultrasound and fluoroscopic guidance. Dictated by: Bipin Bhagat M.D. on 11/27/2017 at 13:49 Electronically approved by: Bipin Bhagat M.D. on 11/27/2017 at 13:49 Dictated By: BIPIN BHAGAT MD 48 Transcribed By: MURRAY on 11/27/171348 COPY TO: JUNO BRADY MD US RENAL RETROPERITONEAL COMP [place] [address] Patient Name: DEMARCUS REAVES MR #: [id number] : 1950 Age/Sex: 67/F Req #: [id number] Adm Physician: JUNO BRADY MD Ordered by: SHIRA HOLDEN MD Report #: [id number] Location: MED/SURG2 Room/Bed: [facility] Procedure: [id number] US/US RENAL RETROPERITONEAL COMP Exam Date: 11/16/17 Exam Time: 1643 REPORT STATUS: Signed PROCEDURE: US RETROPERITONEAL ( KIDNEY ). COMPARISON: None. INDICATIONS: ARF TECHNIQUE: Parra-scale and color sonographic images of the bilateral kidneys and bladder where obtained in transverse and longitudinal planes. FINDINGS: RIGHT KIDNEY: 9.0 cm, cortex 1.3 cm Cysts: 2.2 x 1.9 x 2.2 cm cystic, anechoic lesion in the inferolateral aspect Solid masses: 0.9 x 1.0 x 1.1 cm relatively well circumscribed, hyperechoic non-shadowing cortical solid lesion in the mid aspect Stones: None Hydronephrosis: None Echogenicity: Normal LEFT KIDNEY: 9.1 cm, cortex 0.9 cm Cysts: None Solid masses: None Stones: None Hydronephrosis: None Echogenicity: Normal Bladder: No focal lesions. No wall thickening. CONCLUSION: 1. Both kidneys are in the lower limit of normal in size. Normal echogenicity. No stones or hydronephrosis. 2. 2.2 cm simple right renal cyst. 3. 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 Amita Natarajan M.D. Dictated by: Amita Natarajan M.D. on 11/16/2017 at 18:16 Electronically approved by: Amita Natarajan M.D. on 11/16/2017 at 18:16 Dictated By: AMITA NATARAJAN MD 15 Transcribed By: MURRAY on 11/16/171815 COPY TO: SHIRA HOLDEN MD MRI FOOT RIGHT WO [place] [address] Patient Name: DEMARCUS REAVES MR #: [id number] : 1950 Age/Sex: 67/F Req #: [id number] Adm Physician: JUNO BRADY MD Ordered by: MARTHA PAGAN DPMi Report #: [id number] Location: MED/SURG2 Room/Bed: [facility] Procedure: [id number] MRI/MRI FOOT RIGHT WO Exam Date: Exam Time: REPORT STATUS: Signed TECHNIQUE: Magnetic resonance imaging of the RIGHT foot (midfoot/forefoot) was performed WITHOUT injected contrast. HISTORY: wet gangrene, infection, third toe, osteomyelitis COMPARISON: None available. DISCUSSION: Bone: No focal or infiltrative bone marrow replacing abnormality. No acute fracture or osteonecrosis. Healed fracture deformities of the bases of the second, third and fifth proximal phalanges. Diffusely preserved fatty marrow signal. Joints: Hammertoe configuration of the second and third digits. No effusion. Soft Tissues: No drainable fluid collection. Mild diffuse edema. IMPRESSION: 1. No evidence of osteomyelitis. 2. No soft tissue abscess. Signed by: Dr. Marjorie Watson D.O., M.M.M. on 11/15/2017 5:08 PM Dictated By: MARJORIE HERNANDEZ DO 07 Transcribed By: DAMIEN on 11/15/171707 COPY TO: MARTHA PAGAN DPM CHEST SINGLE (PORTABLE) [place] [address] Patient Name: DEMARCUS REAVES MR #: [id number] : 1950 Age/Sex: 67/F Req #: [id number] Adm Physician: Ordered by: KOLTON NIÑO MD Report #: [id number] Location: ER Room/Bed: Procedure: [id number] DX/CHEST SINGLE (PORTABLE) Exam Date: 11/14/17 Exam Time: 1430 REPORT STATUS: Signed EXAMINATION: CHEST SINGLE (PORTABLE) INDICATION: COMPARISON: Chest radiograph 03/30/2015 FINDINGS: AP view TUBES and LINES: None. LUNGS: Lungs are well inflated. Lungs are clear. There is no evidence of pneumonia or pulmonary edema. PLEURA: No pleural effusion or pneumothorax. HEART AND MEDIASTINUM: The cardiomediastinal silhouette is unremarkable. BONES AND SOFT TISSUES: No acute osseous lesion. Soft tissues are unremarkable. UPPER ABDOMEN: No free air under the diaphragm. IMPRESSION: No acute thoracic abnormality. Signed by: DR. Giovanny Ogden MD on 11/14/2017 2:53 PM Dictated By: GIOVANNY OGDEN MD 729 Transcribed By: DAMIEN on 11/14/171452 COPY TO: KOLTON NIÑO MD [address], [place] [address] Patient Name: DEMARCUS REAVES MR #: [id number] : 1950 Age/Sex: 67/F Req #: [id number] Adm Physician: Ordered by: KOLTON NIÑO MD Report #: [id number] Location: ER Room/Bed: Procedure: [id number] DX/FOOT RIGHT COMPLETE Exam Date: 11/14/17 Exam Time: 1430 REPORT STATUS: Signed FOOT RIGHT COMPLETE HISTORY: Right third digit abscess, wound. COMPARISON: None available. FINDINGS: Bones: No acute displaced fracture. Chronic appearing fracture deformity of the third proximal phalanx. Calcaneal enthesopathic changes. Osseous alignment is within normal limits. Joints: Scattered mild degenerative changes. Soft tissues: Vascular calcifications. Soft tissue swelling/defect of the third digit. IMPRESSION: Soft tissue swelling of the third toe without radiographic evidence of osteomyelitis. Recommend follow up radiograph in the setting of continued poor wound healing. Signed by: DR. Giovanny Ogden MD on 11/14/2017 3:01 PM Dictated By: GIOVANNY OGDEN MD 1507 Transcribed By: DAMIEN on 11/14/17 1501 COPY TO: KOLTON NIÑO MD
--- OUTSIDE RECORDS SUMMARY | 2019-06-24 08:01 | XMS REPORT | Summary of Care ---
Author Author [facility] Organization [facility] Address Unknown Phone Unavailable Encounter HQ [facility]arke(FIN) [id number] Date(s): 01/22/18 - 01/22/18 [facility] [address] [place] [address]- [phone] Discharge Disposition: Home or Self Care Attending Physician: Roger Wilson MD Referring Physician: Roger Wilson MD Vital Signs No data available for this section Problem List No data available for this section Allergies, Adverse Reactions, Alerts No data available for this section Medications No data available for this section Results No data available for this section Immunizations No data available for this section Procedures No data available for this section Social History No data available for this section Assessment and Plan No data available for this section
--- OUTSIDE RECORDS SUMMARY | 2019-06-24 08:01 | XMS REPORT | Continuity of Care Document ---
Author Author [facility] [employer] Organization [facility] Address Unknown Phone Unavailable Care Team Providers Care Business Division Chair Name Role Phone [facility] Unavailable Unavailable Problems Problem Status Onset Date Classification Date Reported Comments Source OSTEOMYELITIS Active 01/21/2018 [facility] OSTEOMYELITIS, UNSPECIFIED Active [facility] Medications No Data Provided for This Section Allergies, Adverse Reactions, Alerts No Known Medication Allergies Immunizations No Data Provided for This Section Results No Data Provided for This Section Pathology Reports No Data Provided for This Section Diagnostic Reports No Data Provided for This Section Consultation Notes No Data Provided for This Section Discharge Summaries No Data Provided for This Section History and Physicals No Data Provided for This Section Vital Signs No Data Provided for This Section Encounters Location Location Details Encounter Type Encounter Number Reason For Visit Attending Provider ADM Date DC Date Status Source [facility] [id number] Roger Potteryuridia 01/22/2018 01/23/2018 [facility] Procedures No Data Provided for This Section Assessment and Plan No Data Provided for This Section Plan of Care No Data Provided for This Section Social History Social History Date Source No data available for this section 01/23/2018 [facility] Family History No Data Provided for This Section Advance Directives No Data Provided for This Section Functional Status No Data Provided for This Section
[2019-06-24 09:37] LABS: ANION GAP 17.9 mmol/L (8-16); CALCIUM 9.2 mg/dL (8.4-10.2); CREATININE, SERUM 2.06 mg/dL (0.57-1.11); POTASSIUM 5.9 mmol/L (3.5-5.1)
[2019-06-24 15:15] VITALS: BP 132/70
--- NOTE | 2019-06-24 15:15 | NUR ---
bedside report received from Osman Brush RN. drowsy, somulent, aroused with stimuli , PERRLA, respirations even and unlabored to room air. Pulses x4 extremities equal and strong. Cap fill brisk < 3 sec. Skin warm and dry integrity appears intact. IV 22g to right hand presents healthy w/o s/s of infiltration or complaint. Abdomen soft and supple. personal affects with patient. Family brought to bedside. family verbalizes understanding of POC. Pt placed on bedside monitor. Currently w/o complaint of pain or need. bed low and locked, side rails up x2, call light within reach-cgf
[2019-06-24 15:30] VITALS: BP 132/78
[2019-06-24 15:45] VITALS: BP 129/76
[2019-06-24 16:00] VITALS: BP 128/77
--- NOTE | 2019-06-24 16:00 | NUR ---
pt voided 400ml clear yellow urine. female staff assist with bedpan and paco care per pt request. TR band deflation trial started. Addendum: 06/24/19 at 1837 by Dada Burns RN TR band correction - no TR Band present . Ongoing assessment of right groin s/p procedural closure. + neurovascular function to right leg
[2019-06-24 16:15] VITALS: BP 135/76
--- NOTE | 2019-06-24 16:45 | NUR ---
TR band removed and dressing applied. No gross issues or need during this time. right hand remains with + neurovascular function. Addendum: 06/24/19 at 1838 by Dada Burns RN TR correction - no TR band. Substitute with right groin assessment
--- NOTE | 2019-06-24 17:15 | NUR ---
Pt meets DC criteria. right radial assessed for s/s of complication and presence of hematoma. overall skin warm, dry, no discolor, and pulses present. IV removed from left hand. Distal tip appears intact. VS WNL. Pt denies pain, sob, or need at this time. Family at bedside. Review of discharge paperwork and follow up instructions. verbalized understanding. Pt to wheelchair and transported to front of hospital. Transferred to private vehicle under own strength w/o incident with DC paperwork in hand. - cgf Addendum: 06/24/19 at 1838 by Dada Burns RN correction not radial - right femoral assessment
--- NOTE | 2019-06-25 11:20 | Operative Report ---
DATE OF PROCEDURE: 06/24/2019 SURGEON: Naresh Kelley MD INDICATION: Coronary artery disease, abnormal stress test. PROCEDURES PERFORMED: Left heart catheterization, selective coronary angiography. COMPLICATIONS: None. RECOMMENDATIONS: Medical therapy. DESCRIPTION OF PROCEDURE: Access obtained in the right femoral artery. A 6-Norwegian sheath was placed. Heavily calcified coronary arteries with moderate to severe diffuse coronary artery disease, 50% to 70% was noted. No focal stenosis was noted besides in the apical left anterior descending artery of 90%. This was 1.5 mm vessel. No intervention was deemed necessary. Guide was removed. Sheath was removed. The patient's groin was repaired using Mynx closure device. The patient was discharged home same day. Naresh Kelley MD KSB/MODL /[id number]
== END | disposition home or self-care (01) ==
LOC: CATH LAB 07:46
PROVIDERS: ATTEND Internal Medicine Interventional Cardiology
DX: I25.10 Atherosclerotic heart disease of native coronary artery without angina pectoris (principal); I73.9 Peripheral vascular disease, unspecified; R94.31 Abnormal electrocardiogram [ECG] [EKG]; E78.5 Hyperlipidemia, unspecified; E11.22 Type 2 diabetes mellitus with diabetic chronic kidney disease; I12.9 Hypertensive chronic kidney disease with stage 1 through stage 4 chronic kidney disease, or unspecified chronic kidney disease; N18.9 Chronic kidney disease, unspecified; Z01.812 Encounter for preprocedural laboratory examination; Z79.02 Long term (current) use of antithrombotics/antiplatelets; Z79.82 Long term (current) use of aspirin; Z79.84 Long term (current) use of oral hypoglycemic drugs; Z68.33 Body mass index [BMI] 33.0-33.9, adult
CPT/HCPCS: 36415 ×2; 80048; 80053; 82948; 85025; 85610; 93454; C1760; C1769; J2001; J2250; J3010; J7030; J7799; Q9967

== ENCOUNTER → 2022-07-31 | Day surgery (SDC) | payer MEDICARE ==
[2022-07-28 11:22] LABS: BASOPHILS # (AUTO) 0.1 (0.0-0.1); BASOPHILS % 0.6 % (0.0-1.0); EOSINOPHILS # (AUTO) 0.9 (0.0-0.4); HEMATOCRIT 35.5 % (34.2-44.1); HEMOGLOBIN 11.2 g/dL (12.0-16.0); LYMPHOCYTES # (AUTO) 2.7 (1.0-3.2); LYMPHOCYTES % 14.8 % (18.0-39.1); MEAN CORPUSCULAR HEMOGLOBIN 29.6 pg (28-32); MEAN CORPUSCULAR HGB CONC 31.5 g/dL (31-35); MEAN CORPUSCULAR VOLUME 93.9 fL (81-99); MONOCYTES % 5.3 % (4.4-11.3); NEUTROPHILS # (AUTO) 13.5 (2.1-6.9); NEUTROPHILS % 73.6 % (38.7-80.0); PLATELET COUNT 310 x10e3/uL (140-360); RED BLOOD COUNT 3.78 x10e6/uL (3.6-5.1); RED CELL DISTRIBUTION WIDTH 12.9 % (11.7-14.4)
[2022-07-28 11:47] LABS: ANION GAP 19.5 mmol/L (8-16); CALCIUM 8.7 mg/dL (8.4-10.2); CREATININE, SERUM 3.52 mg/dL (0.57-1.11); POTASSIUM 4.5 mmol/L (3.5-5.1)
[~2022-07-31] MED LIST changes: -ALPRAZOLAM 0.5 MG TAB ONE; +AMLODIPINE BESYL5 MG PO; +BUPIVACAINE 0.5%/EPI 30 ML SDV INJ ONE; +DEXAMETHASONE SOD PHOS INJ 4 MG/ML SDV ONE; -DEXTROSE 50% SYRINGE 50 ML IV ONE; -DIPHENHYDRAMINE HCL 25 MG CAP ONE; +FUROSEMIDE40 MG PO; -HEPARIN SOD/SOD CHLORIDE 2,000 ML ONE; +HYDROCODON-ACE1 EA11 PO; -IOPAMIDOL 370 MG/ML 200 ML INFUS..BTL INJ ONE; +LIDOCAINE 2% /EPINEPHRINE 20 ML SDV INJ ONE; -LIDOCAINE HCL 2% LOCAL 20 ML VIAL ONE; -MIDAZOLAM HCL 2 MG/2 ML VIAL ONE; +MILK OF MA2400 MG/10 PO; +MIRALAX17 GM PO; +ONDANSETRON HCL INJ 2MG/ML 2ML 2 MG/ML VIAL ONE; +PIOGLITAZONE HC45 MG PO; +PLAVIX75 MG PO; +POVIDONE IODINE 0.05% 0.05 % ML PO ONE; +PROCTOZONE-HC30 G1 PR; +PROPOFOL IV EMULSION 10 MG/ML 20 ML VIAL ONE; +SEVOFLURANE INHAL SOLN 250 ML PEN BTL ONE; -SODIUM CHLORIDE 0.9% 1000ML 1,000 ML ONE; +ZETIA10 MG PO
[2022-07-31 14:40] VITALS: BP 153/79
== END | disposition home or self-care (01) ==
LOC: OR 10:56
PROVIDERS: ATTEND Surgery
DX: K60.3 Anal fistula (principal); I25.10 Atherosclerotic heart disease of native coronary artery without angina pectoris; E11.22 Type 2 diabetes mellitus with diabetic chronic kidney disease; I12.9 Hypertensive chronic kidney disease with stage 1 through stage 4 chronic kidney disease, or unspecified chronic kidney disease; N18.9 Chronic kidney disease, unspecified; E78.5 Hyperlipidemia, unspecified; Z01.810 Encounter for preprocedural cardiovascular examination; Z01.812 Encounter for preprocedural laboratory examination; Z01.818 Encounter for other preprocedural examination; Z20.822 Contact with and (suspected) exposure to COVID-19; Z79.02 Long term (current) use of antithrombotics/antiplatelets; Z79.82 Long term (current) use of aspirin; Z79.84 Long term (current) use of oral hypoglycemic drugs; Z79.899 Other long term (current) drug therapy; Z68.31 Body mass index [BMI] 31.0-31.9, adult
CPT/HCPCS: 0223U; 36415 ×2; 46270; 71046; 80048; 82948; 85025; 93005; J0694; J1100; J2405; J2704; J3010; J2001

== ENCOUNTER 2022-11-11 02:59 | Emergency (ER) | payer MEDICARE ==
[~2022-11-11] VITALS: Ht 160 cm; Wt 89.4 kg
[~2022-11-11 02:59] MED LIST changes: -BUPIVACAINE 0.5%/EPI 30 ML SDV INJ ONE; -DEXAMETHASONE SOD PHOS INJ 4 MG/ML SDV ONE; -FENTANYL CITRATE/PF 100MCG/2 ML INJ ONE; -LIDOCAINE 2% /EPINEPHRINE 20 ML SDV INJ ONE; -ONDANSETRON HCL INJ 2MG/ML 2ML 2 MG/ML VIAL ONE; -POVIDONE IODINE 0.05% 0.05 % ML PO ONE; -PROPOFOL IV EMULSION 10 MG/ML 20 ML VIAL ONE; -SEVOFLURANE INHAL SOLN 250 ML PEN BTL ONE
[2022-11-11 04:19] LABS: BASOPHILS # (AUTO) 0.1 (0.0-0.1); BASOPHILS % 0.6 % (0.0-1.0); EOSINOPHILS # (AUTO) 0.2 (0.0-0.4); EOSINOPHILS % 1.8 % (0.0-6.0); HEMATOCRIT 41.4 % (34.2-44.1); HEMOGLOBIN 12.7 g/dL (12.0-16.0); LYMPHOCYTES # (AUTO) 1.5 (1.0-3.2); LYMPHOCYTES % 13.5 % (18.0-39.1); MEAN CORPUSCULAR HEMOGLOBIN 28.5 pg (28-32); MEAN CORPUSCULAR HGB CONC 30.7 g/dL (31-35); MONOCYTES # (AUTO) 0.8 (0.2-0.8); MONOCYTES % 6.9 % (4.4-11.3); NEUTROPHILS # (AUTO) 8.4 (2.1-6.9); NEUTROPHILS % 76.7 % (38.7-80.0); PLATELET COUNT 258 x10e3/uL (140-360); RED BLOOD COUNT 4.45 x10e6/uL (3.6-5.1); RED CELL DISTRIBUTION WIDTH 12.8 % (11.7-14.4)
[2022-11-11 05:13] LABS: ALBUMIN 2.9 g/dL (3.5-5.0); ALBUMIN/GLOBULIN RATIO 0.7 (0.8-2.0); ALKALINE PHOSPHATASE 103 IU/L (40-150); ANION GAP 21.3 mmol/L (8-16); BLOOD UREA NITROGEN 69 mg/dL (7-26); BUN/CREATININE RATIO 15 (6-25); CARBON DIOXIDE 17 mmol/L (22-29); CHLORIDE 95 mmol/L (98-107); CREATININE, SERUM 4.59 mg/dL (0.57-1.11); GLUCOSE 108 mg/dL (74-118); POTASSIUM 4.3 mmol/L (3.5-5.1); SODIUM 129 mmol/L (136-145)
[2022-11-11 05:14] LABS: ALANINE AMINOTRANSFERASE < 6 IU/L (0-55); CALCIUM 6.5 mg/dL (8.4-10.2)
[2022-11-11] MEDS ORDERED: CALCIUM GLUC 1 G/50 ML NACL 50 ML IV ONE ×2 (05:30)
[2022-11-11] MEDS ORDERED: SODIUM CHLORIDE 0.9% 1000ML 1,000 ML IV ONE (05:30)
[2022-11-11 08:20] LABS: ANION GAP 19.3 mmol/L (8-16); CREATININE, SERUM 4.26 mg/dL (0.57-1.11); POTASSIUM 4.3 mmol/L (3.5-5.1)
[2022-11-11 09:50] VITALS: BP 140/90
== END 2022-11-11 09:47 | disposition home or self-care (01) ==
LOC: ER 03:05
DX: R05.9 Cough, unspecified (principal); U07.1 COVID-19; N99.0 Postprocedural (acute) (chronic) kidney failure; E83.51 Hypocalcemia; I10 Essential (primary) hypertension; E11.9 Type 2 diabetes mellitus without complications; E78.5 Hyperlipidemia, unspecified
CPT/HCPCS: 36415; 80048; 80053; 85025; 99283; J7030

== ENCOUNTER 2023-08-27 09:31 | Inpatient (IN) | payer MEDICARE ==
[~2023-08-27] VITALS: Ht 160 cm; Wt 58.1 kg
[2023-08-27] VITALS (7 sets, daily range): BP systolic 126–179; BP diastolic 48–83; PULSE 76–77; RESP 17–22; TEMP 97.5–99.9; O2SAT 92–100
[~2023-08-27 09:31] MED LIST changes: +BUMETANIDE1 MG PO; +DICYCLOMINE HCL20 MG PO
[2023-08-27 10:05] LABS: BASOPHILS # (AUTO) 0.1 (0.0-0.1); BASOPHILS % 0.6 % (0.0-1.0); EOSINOPHILS # (AUTO) 0.6 (0.0-0.4); EOSINOPHILS % 5.7 % (0.0-6.0); HEMATOCRIT 33.9 % (34.2-44.1); HEMOGLOBIN 10.9 g/dL (12.0-16.0); LYMPHOCYTES # (AUTO) 1.9 (1.0-3.2); LYMPHOCYTES % 17.3 % (18.0-39.1); MEAN CORPUSCULAR HEMOGLOBIN 29.7 pg (28-32); MEAN CORPUSCULAR HGB CONC 32.2 g/dL (31-35); MEAN CORPUSCULAR VOLUME 92.4 fL (81-99); MONOCYTES # (AUTO) 0.9 (0.2-0.8); MONOCYTES % 7.9 % (4.4-11.3); NEUTROPHILS # (AUTO) 7.4 (2.1-6.9); NEUTROPHILS % 67.9 % (38.7-80.0); PLATELET COUNT 287 x10e3/uL (140-360); RED BLOOD COUNT 3.67 x10e6/uL (3.6-5.1); RED CELL DISTRIBUTION WIDTH 15.8 % (11.7-14.4); WHITE BLOOD COUNT 10.89 x10e3/uL (4.8-10.8)
[2023-08-27 11:30] LABS: ALBUMIN 3.3 g/dL (3.5-5.0); ALBUMIN/GLOBULIN RATIO 1.3 (0.8-2.0); CALCIUM 8.7 mg/dL (8.4-10.2); CREATININE, SERUM 3.09 mg/dL (0.57-1.11)
[2023-08-27] MEDS: ASPIRIN 81 MG CHEW TAB PO ONE ×2 (12:48→13:53)
[2023-08-27] MEDS ORDERED: LORAZEPAM INJ 2 MG/ML VIAL IV ONE (13:15)
[2023-08-27] MEDS ORDERED: POTASSIUM CHLORIDE 20 MEQ TAB CR PO STA (13:50)
[2023-08-27] MEDS: HYDRALAZINE HCL 20 MG/ML VIAL IV PRN (16:34)
[2023-08-28] VITALS (9 sets, daily range): BP systolic 145–206; BP diastolic 61–86; PULSE 76–81; RESP 16–24; TEMP 97.6–98.4; O2SAT 95–100
[2023-08-28 05:54] LABS: BASOPHILS # (AUTO) 0.1 (0.0-0.1); BASOPHILS % 0.6 % (0.0-1.0); EOSINOPHILS # (AUTO) 0.6 (0.0-0.4); EOSINOPHILS % 6.4 % (0.0-6.0); HEMOGLOBIN 9.6 g/dL (12.0-16.0); LYMPHOCYTES # (AUTO) 1.4 (1.0-3.2); LYMPHOCYTES % 14.3 % (18.0-39.1); MEAN CORPUSCULAR HEMOGLOBIN 29.8 pg (28-32); MEAN CORPUSCULAR VOLUME 93.2 fL (81-99); MONOCYTES # (AUTO) 0.8 (0.2-0.8); MONOCYTES % 7.9 % (4.4-11.3); NEUTROPHILS # (AUTO) 7.1 (2.1-6.9); NEUTROPHILS % 70.4 % (38.7-80.0); PLATELET COUNT 237 x10e3/uL (140-360); RED BLOOD COUNT 3.22 x10e6/uL (3.6-5.1); RED CELL DISTRIBUTION WIDTH 15.8 % (11.7-14.4); WHITE BLOOD COUNT 10.07 x10e3/uL (4.8-10.8)
[2023-08-28 06:18] LABS: ANION GAP 14.9 mmol/L (8-16); CALCIUM 8.5 mg/dL (8.4-10.2); CREATININE, SERUM 3.81 mg/dL (0.57-1.11); POTASSIUM 3.9 mmol/L (3.5-5.1)
[2023-08-28] MEDS: POLYETHYLENE GLYCOL 3350 17 GM PACK PO SCH (08:41)
[2023-08-28] MEDS: CLOPIDOGREL BISULFATE 75 MG TAB PO SCH (08:42)
[2023-08-28] MEDS: DICYCLOMINE HCL 20 MG TAB PO SCH (08:42)
[2023-08-28] MEDS: BUMETANIDE 1 MG TAB PO SCH (08:43)
[2023-08-28] MEDS: AMLODIPINE BESYLATE 5 MG TAB PO SCH (08:44)
[2023-08-28] MEDS ORDERED: MAGNESIUM HYDROXIDE 30 ML UDC PO SCH (09:00)
[2023-08-28] MEDS ORDERED: SODIUM BICARBONATE 650 MG TAB PO SCH (09:00)
[2023-08-28] MEDS ORDERED: HEPARIN SOD (PORCINE) 1000 UNIT/ML SDV IV PRN (10:00)
[2023-08-28] MEDS ORDERED: SODIUM CHLORIDE 0.9% 1000ML 2,000 ML IV PRN (10:00)
[2023-08-28] MEDS ORDERED: ASPIRIN 325 MG TAB EC PO ONE (10:30)
[2023-08-28] MEDS ORDERED: ALBUMIN 25% 25GM 100ML 0.25 GM/ML BTL IV ONE (10:30)
[2023-08-28 10:37] LABS: CHOL/HDL RATIO 3.4 (3.0-3.6)
[2023-08-28] MEDS ORDERED: ALBUMIN 25% 12.5GM 0.25 GM/ML BTL IV PRN (11:15)
[2023-08-28] MEDS ORDERED: ALBUMIN 25% 25GM 100ML 100 ML IV SCH (12:00)
[2023-08-28] MEDS ORDERED: LORAZEPAM INJ 2 MG/ML VIAL IV ONE (12:15)
[2023-08-28] MEDS: ATORVASTATIN 40 MG TAB PO SCH (20:58)
[2023-08-28] MEDS: HYDRALAZINE HCL 20 MG/ML VIAL IV PRN (21:01)
[2023-08-29] VITALS: BP 137/51; PULSE 84; RESP 19; TEMP 98.1; O2SAT 100
[2023-08-29 05:38] VITALS: BP 128/59; PULSE 80; RESP 20; TEMP 98.4; O2SAT 100
[2023-08-29 08:44] VITALS: BP 160/43; PULSE 81; RESP 17; TEMP 98.4; O2SAT 100
[2023-08-29] MEDS: POLYETHYLENE GLYCOL 3350 17 GM PACK PO SCH (09:00)
[2023-08-29] MEDS: DICYCLOMINE HCL 20 MG TAB PO SCH (09:25)
[2023-08-29] MEDS: AMLODIPINE BESYLATE 5 MG TAB PO SCH (09:25)
[2023-08-29] MEDS: BUMETANIDE 1 MG TAB PO SCH (09:25)
[2023-08-29] MEDS: CLOPIDOGREL BISULFATE 75 MG TAB PO SCH (09:26)
[2023-08-29] MEDS: ASPIRIN 81 MG ENTERIC COATED PO SCH (09:26)
[2023-08-29 10:07] VITALS: BP 160/43; PULSE 81; RESP 17; TEMP 98.4; O2SAT 100
[2023-08-29 14:48] VITALS: BP 143/33; PULSE 78; RESP 16; TEMP 98; O2SAT 100
[2023-08-29] MEDS: ATORVASTATIN 40 MG TAB PO SCH (20:37)
[2023-08-29 20:53] VITALS: BP 147/57; PULSE 85; RESP 18; TEMP 97.8; O2SAT 97
[2023-08-30] VITALS (7 sets, daily range): BP systolic 149–196; BP diastolic 56–71; PULSE 76–79; RESP 16–19; TEMP 97.6–98.1; O2SAT 99–100
[2023-08-30 05:56] LABS: BASOPHILS # (AUTO) 0.1 (0.0-0.1); BASOPHILS % 0.7 % (0.0-1.0); EOSINOPHILS # (AUTO) 0.7 (0.0-0.4); EOSINOPHILS % 7.2 % (0.0-6.0); HEMATOCRIT 31.4 % (34.2-44.1); HEMOGLOBIN 10.2 g/dL (12.0-16.0); LYMPHOCYTES # (AUTO) 1.9 (1.0-3.2); LYMPHOCYTES % 20.1 % (18.0-39.1); MEAN CORPUSCULAR HEMOGLOBIN 30.3 pg (28-32); MEAN CORPUSCULAR HGB CONC 32.5 g/dL (31-35); MEAN CORPUSCULAR VOLUME 93.2 fL (81-99); MONOCYTES # (AUTO) 1.1 (0.2-0.8); MONOCYTES % 11.9 % (4.4-11.3); NEUTROPHILS # (AUTO) 5.7 (2.1-6.9); NEUTROPHILS % 59.7 % (38.7-80.0); PLATELET COUNT 225 x10e3/uL (140-360); RED BLOOD COUNT 3.37 x10e6/uL (3.6-5.1); WHITE BLOOD COUNT 9.51 x10e3/uL (4.8-10.8)
[2023-08-30 06:57] LABS: ALANINE AMINOTRANSFERASE < 6 IU/L (0-55); ALBUMIN 2.9 g/dL (3.5-5.0); ALKALINE PHOSPHATASE 105 IU/L (40-150); ANION GAP 13.9 mmol/L (8-16); BLOOD UREA NITROGEN 34 mg/dL (7-26); BUN/CREATININE RATIO 10 (6-25); CALCIUM 8.3 mg/dL (8.4-10.2); CARBON DIOXIDE 30 mmol/L (22-29); CHLORIDE 99 mmol/L (98-107); CREATININE, SERUM 3.55 mg/dL (0.57-1.11); POTASSIUM 3.9 mmol/L (3.5-5.1); SODIUM 139 mmol/L (136-145)
[2023-08-30] MEDS: POLYETHYLENE GLYCOL 3350 17 GM PACK PO SCH (09:00)
[2023-08-30] MEDS: DICYCLOMINE HCL 20 MG TAB PO SCH (10:11)
[2023-08-30] MEDS: CLOPIDOGREL BISULFATE 75 MG TAB PO SCH (10:11)
[2023-08-30] MEDS: AMLODIPINE BESYLATE 5 MG TAB PO SCH (10:11)
[2023-08-30] MEDS: ASPIRIN 81 MG ENTERIC COATED PO SCH (10:11)
[2023-08-30] MEDS: BUMETANIDE 1 MG TAB PO SCH (10:12)
[2023-08-30] MEDS: HYDRALAZINE HCL 20 MG/ML VIAL IV PRN (17:49)
[2023-08-30] MEDS: ATORVASTATIN 40 MG TAB PO SCH (20:34)
== END 2023-08-30 22:30 | DRG 64 ==
LOC: ER 09:37 → ERHOLD 12:09 → MED/SURG3 14:45 → OBSVTOIN 08-28 09:10
PROVIDERS: ADMIT Internal Medicine; ATTEND Internal Medicine
PROC: 5A1D70Z Performance of Urinary Filtration, Intermittent, Less than 6 Hours Per Day (ICD-10-PCS; principal; 2023-08-28)
DX: I63.9 Cerebral infarction, unspecified (principal); N18.6 End stage renal disease; G81.94 Hemiplegia, unspecified affecting left nondominant side; I50.22 Chronic systolic (congestive) heart failure; I13.2 Hypertensive heart and chronic kidney disease with heart failure and with stage 5 chronic kidney disease, or end stage renal disease; I42.9 Cardiomyopathy, unspecified; E87.20 Acidosis, unspecified; I25.10 Atherosclerotic heart disease of native coronary artery without angina pectoris; E11.22 Type 2 diabetes mellitus with diabetic chronic kidney disease; E78.5 Hyperlipidemia, unspecified; R47.1 Dysarthria and anarthria; D63.8 Anemia in other chronic diseases classified elsewhere; R29.810 Facial weakness; Z99.2 Dependence on renal dialysis; Z88.6 Allergy status to analgesic agent; Z91.041 Radiographic dye allergy status; Z79.02 Long term (current) use of antithrombotics/antiplatelets; Z79.899 Other long term (current) drug therapy; Z79.82 Long term (current) use of aspirin; Z20.822 Contact with and (suspected) exposure to COVID-19
CPT/HCPCS: 36415; 70450; 70544; 70547; 70551; 71045; 80048; 80053; 80061; 82948; 83036; 84484; 85025; 86704; 86706; 86707; 87350; 90962; 93005; 93306; 93880; 94799; 99284; G0378; J1644; J2060; J7030; P9047; U0002